=== PATIENT | female | born 1955 | race Caucasian/White ===

== ENCOUNTER 2016-10-26 08:36 | Outpatient (CLI) ==
[2013-04-14 18:39] VITALS: TEMP 98.9
[2015-11-16 09:22] VITALS: BMI 32.9
[2016-10-26 08:56] LABS: BASOPHILS % (AUTO) 0.7 % (0.0-3.0); EOSINOPHILS # (AUTO) 0.1 K/ul (0.0-0.7); EOSINOPHILS % (AUTO) 3.5 % (0.0-7.0); HEMATOCRIT 34.6 % (37.0-47.0); HEMOGLOBIN 10.8 g/dl (12.0-16.0); IMMATURE GRANULOCYTE % (AUTO) 0.3 % (0.0-5.0); LYMPHOCYTES # (AUTO) 0.6 K/uL (0.60-3.4); LYMPHOCYTES % (AUTO) 21.5 (10.0-50.0); MEAN CORPUSCULAR HGB CONC 31.2 (31.8-35.4); MEAN CORPUSCULAR VOLUME 96.1 fl (81.0-99.0); MONOCYTES # (AUTO) 0.4 K/uL (0.4-2.0); MONOCYTES % (AUTO) 12.5 (0-10); NEUTROPHILS # (AUTO) 1.8 K/ul (2.0-6.9); NEUTROPHILS % (AUTO) 61.5; PLATELET COUNT 166 10^3/uL (140-440); WHITE BLOOD COUNT 2.88 K/ul (4.6-10.2)
== END 2016-10-26 08:37 | disposition home or self-care (01) ==
LOC: OPMED 08:36
PROVIDERS: ATTEND Internal Medicine Hematology & Oncology
DX: N18.3 Chronic kidney disease, stage 3 (moderate) (principal); D63.1 Anemia in chronic kidney disease; D72.819 Decreased white blood cell count, unspecified
CPT/HCPCS: 36415; 85025

== ENCOUNTER 2016-11-02 08:39 | Outpatient (CLI) ==
[2013-04-14 18:39] VITALS: TEMP 98.9
[2015-11-16 09:22] VITALS: BMI 32.9
[2016-11-02 09:00] LABS: BASOPHILS % (AUTO) 0.4 % (0.0-3.0); EOSINOPHILS # (AUTO) 0.1 K/ul (0.0-0.7); EOSINOPHILS % (AUTO) 3.2 % (0.0-7.0); HEMATOCRIT 33.9 % (37.0-47.0); HEMOGLOBIN 10.8 g/dl (12.0-16.0); IMMATURE GRANULOCYTE % (AUTO) 0.4 % (0.0-5.0); LYMPHOCYTES # (AUTO) 0.6 K/uL (0.60-3.4); LYMPHOCYTES % (AUTO) 24.2 (10.0-50.0); MEAN CORPUSCULAR HEMOGLOBIN 30.7 pg (27.0-31.0); MEAN CORPUSCULAR HGB CONC 31.9 (31.8-35.4); MEAN CORPUSCULAR VOLUME 96.3 fl (81.0-99.0); MONOCYTES # (AUTO) 0.2 K/uL (0.4-2.0); MONOCYTES % (AUTO) 7.7 (0-10); NEUTROPHILS # (AUTO) 1.6 K/ul (2.0-6.9); NEUTROPHILS % (AUTO) 64.1; PLATELET COUNT 174 10^3/uL (140-440); RED BLOOD COUNT 3.52 10^6/ul (4.20-5.40); WHITE BLOOD COUNT 2.48 K/ul (4.6-10.2)
== END 2016-11-02 08:40 | disposition home or self-care (01) ==
LOC: OPMED 08:39
PROVIDERS: ATTEND Internal Medicine Hematology & Oncology
DX: N18.3 Chronic kidney disease, stage 3 (moderate) (principal); D63.1 Anemia in chronic kidney disease; D72.819 Decreased white blood cell count, unspecified
CPT/HCPCS: 36415; 85025

== ENCOUNTER 2016-11-09 08:42 | Outpatient (CLI) ==
[2013-04-14 18:39] VITALS: TEMP 98.9
[2015-11-16 09:22] VITALS: BMI 32.9
[2016-11-09 09:20] LABS: EOSINOPHILS # (AUTO) 0.2 K/ul (0.0-0.7); EOSINOPHILS % (AUTO) 8.2 % (0.0-7.0); HEMATOCRIT 34.1 % (37.0-47.0); HEMOGLOBIN 10.9 g/dl (12.0-16.0); IMMATURE GRANULOCYTE % (AUTO) 0.5 % (0.0-5.0); LYMPHOCYTES # (AUTO) 0.6 K/uL (0.60-3.4); MEAN CORPUSCULAR HEMOGLOBIN 30.6 pg (27.0-31.0); MEAN CORPUSCULAR VOLUME 95.8 fl (81.0-99.0); MONOCYTES # (AUTO) 0.3 K/uL (0.4-2.0); NEUTROPHILS % (AUTO) 47.3; PLATELET COUNT 179 10^3/uL (140-440); RED BLOOD COUNT 3.56 10^6/ul (4.20-5.40); WHITE BLOOD COUNT 2.07 K/ul (4.6-10.2)
== END 2016-11-09 08:43 | disposition home or self-care (01) ==
LOC: OPMED 08:42
PROVIDERS: ATTEND Internal Medicine Hematology & Oncology
DX: D72.819 Decreased white blood cell count, unspecified (principal)
CPT/HCPCS: 36415; 85025

== ENCOUNTER 2016-11-16 08:46 | Outpatient (CLI) ==
[2015-11-16 09:22] VITALS: BMI 32.9
[2016-11-16 09:07] LABS: BASOPHILS % (AUTO) 0.2 % (0.0-3.0); EOSINOPHILS % (AUTO) 0.2 % (0.0-7.0); HEMATOCRIT 31.7 % (37.0-47.0); HEMOGLOBIN 10.6 g/dl (12.0-16.0); IMMATURE GRANULOCYTE % (AUTO) 0.5 % (0.0-5.0); LYMPHOCYTES # (AUTO) 0.7 K/uL (0.60-3.4); LYMPHOCYTES % (AUTO) 11.2 (10.0-50.0); MEAN CORPUSCULAR HEMOGLOBIN 31.5 pg (27.0-31.0); MEAN CORPUSCULAR HGB CONC 33.4 (31.8-35.4); MEAN CORPUSCULAR VOLUME 94.1 fl (81.0-99.0); MONOCYTES # (AUTO) 0.6 K/uL (0.4-2.0); MONOCYTES % (AUTO) 9.5 (0-10); NEUTROPHILS # (AUTO) 4.8 K/ul (2.0-6.9); NEUTROPHILS % (AUTO) 78.4; PLATELET COUNT 160 10^3/uL (140-440); RED BLOOD COUNT 3.37 10^6/ul (4.20-5.40); WHITE BLOOD COUNT 6.08 K/ul (4.6-10.2)
[2016-11-16] MEDS ORDERED: PROCRIT SUBCUT STA (09:17)
[2016-11-16 09:25] VITALS: BP 126/79; TEMP 96.9
== END 2016-11-16 08:47 | disposition home or self-care (01) ==
LOC: OPMED 08:46 → OUTPT 08:47
PROVIDERS: ATTEND Internal Medicine Hematology & Oncology
DX: D72.819 Decreased white blood cell count, unspecified (principal)
CPT/HCPCS: 36415; 85025; 96372

== ENCOUNTER 2016-11-22 08:33 | Outpatient (CLI) ==
[2013-04-14 18:39] VITALS: TEMP 98.9
[2015-11-16 09:22] VITALS: BMI 32.9
[2016-11-22 08:53] LABS: BASOPHILS % (AUTO) 0.4 % (0.0-3.0); HEMATOCRIT 34.2 % (37.0-47.0); HEMOGLOBIN 11.1 g/dl (12.0-16.0); IMMATURE GRANULOCYTE % (AUTO) 5.2 % (0.0-5.0); LYMPHOCYTES # (AUTO) 1.1 K/uL (0.60-3.4); LYMPHOCYTES % (AUTO) 19.5 (10.0-50.0); MEAN CORPUSCULAR HGB CONC 32.5 (31.8-35.4); MEAN CORPUSCULAR VOLUME 95.5 fl (81.0-99.0); MONOCYTES # (AUTO) 0.4 K/uL (0.4-2.0); NEUTROPHILS # (AUTO) 3.6 K/ul (2.0-6.9); NEUTROPHILS % (AUTO) 66.9; PLATELET COUNT 276 10^3/uL (140-440); RED BLOOD COUNT 3.58 10^6/ul (4.20-5.40); WHITE BLOOD COUNT 5.38 K/ul (4.6-10.2)
== END 2016-11-22 08:34 | disposition home or self-care (01) ==
LOC: LAB 08:33
PROVIDERS: ATTEND Internal Medicine Hematology & Oncology
DX: D72.819 Decreased white blood cell count, unspecified (principal)
CPT/HCPCS: 36415; 85025

== ENCOUNTER 2016-11-27 09:02 | Day surgery (SDC) ==
[2015-11-16 09:22] VITALS: BMI 32.9
[2016-11-27] MEDS ORDERED: ALBUTEROL 0.083% NEB NEB STA (11:01)
[2016-11-27] MEDS ORDERED: VERSED ONE (11:30)
[2016-11-27] MEDS ORDERED: DIPRIVAN 20 ML VIAL IVP ONE (11:30)
[2016-11-27 12:40] VITALS: BP 181/85; TEMP 98.2
--- NOTE | 2016-11-28 10:02 | OP ---
INDICATIONS FOR PROCEDURE: 61-year-old female presents for endoscopy and colonoscopy. She has a remote history of colon polyps for which she is scheduled for colonoscopy. She was scheduled for endoscopy exam because she was having some nausea and vomiting intermittently over the last 4 or 5 months. She states that since she has started a new cough medicine that has completely resolved. She is eating well and not losing weight at this point. She feels okay she tells me. MEDICATIONS: SEE ANESTHESIA NOTES. PROCEDURE: 1. ENDOSCOPY, ARAVIND BIOPSY. 2. COLONOSCOPY. REPORT: The risks, benefits, alternatives and limitations were discussed in detail with the patient. Informed consent was obtained. After adequate sedation was achieved, the video endoscope was introduced in the posterior pharynx and esophagus under direct vision and easily advanced down to the second portion of the duodenum. I then slowly withdrew. The duodenal mucosa appeared unremarkable as did the duodenal bulb. The antrum and body were relatively unremarkable except for it did appear to be mildly atrophic. The cardia and fundus also appeared to have a little bit of mild atrophy. I obtained two biopsies from the antral wall and from the body for H. pylori testing. The scope was withdrawn back through the esophagus which was normal. The patient tolerated the procedure well with stable vital signs and pulse oximetry throughout. The patient's bed was turned. A digital rectal exam revealed good tone, no mass. The colonoscope was introduced into the rectum and advanced under direct visual guidance to the cecum. The cecum was identified by the appendiceal orifice and IC valve. I then slowly withdrew the scope in a circumferential manner examining the mucosa quite carefully. I looked on the proximal and distal side of folds and flexures as best as possible. I was able to retroflex the scope in the right colon and left colon to increase visualization. The colonic mucosa was unremarkable its entire length except for scattered small diverticula throughout the sigmoid colon. No other abnormalities noted including on retroflex view of the anal canal. The prep was good. The withdrawal time was 7 minutes and 59 seconds. The patient tolerated the procedure well with stable vital signs and pulse oximetry throughout. IMPRESSION: 1. The patient tells me she is now asymptomatic. 2. Mildly atrophic appearing gastritis. 3. Colonic diverticulosis. RECOMMENDATIONS: 1. Await H. Pylori; if positive, we will initiate treatment. 2. Since she is asymptomatic, will see her back in the office as needed. 3. Colon screeniing examination again in 10 years. CC: DR. MORENITA TORRES
== END 2016-11-27 12:50 | disposition home or self-care (01) ==
LOC: SURG 09:02
PROVIDERS: ATTEND Internal Medicine Gastroenterology
DX: Z86.010 Personal history of colon polyps (principal); R11.2 Nausea with vomiting, unspecified; K57.30 Diverticulosis of large intestine without perforation or abscess without bleeding; K29.40 Chronic atrophic gastritis without bleeding
CPT/HCPCS: 87339; 94640

== ENCOUNTER 2016-12-06 10:01 | Outpatient (CLI) ==
[2013-04-14 18:39] VITALS: TEMP 98.9
[2015-11-16 09:22] VITALS: BMI 32.9
[2016-12-06 10:16] LABS: BASOPHILS % (AUTO) 0.6 % (0.0-3.0); EOSINOPHILS # (AUTO) 0.1 K/ul (0.0-0.7); EOSINOPHILS % (AUTO) 2.8 % (0.0-7.0); HEMATOCRIT 35.3 % (37.0-47.0); HEMOGLOBIN 11.4 g/dl (12.0-16.0); IMMATURE GRANULOCYTE % (AUTO) 0.3 % (0.0-5.0); LYMPHOCYTES # (AUTO) 0.8 K/uL (0.60-3.4); LYMPHOCYTES % (AUTO) 24.5 (10.0-50.0); MEAN CORPUSCULAR HEMOGLOBIN 30.8 pg (27.0-31.0); MEAN CORPUSCULAR HGB CONC 32.3 (31.8-35.4); MEAN CORPUSCULAR VOLUME 95.4 fl (81.0-99.0); MONOCYTES # (AUTO) 0.3 K/uL (0.4-2.0); MONOCYTES % (AUTO) 9.2 (0-10); NEUTROPHILS # (AUTO) 2.1 K/ul (2.0-6.9); NEUTROPHILS % (AUTO) 62.6; PLATELET COUNT 157 10^3/uL (140-440); WHITE BLOOD COUNT 3.27 K/ul (4.6-10.2)
== END 2016-12-06 10:02 | disposition home or self-care (01) ==
LOC: OPMED 10:01
PROVIDERS: ATTEND Internal Medicine Hematology & Oncology
DX: D72.819 Decreased white blood cell count, unspecified (principal)
CPT/HCPCS: 36415; 85025

== ENCOUNTER 2016-12-14 08:30 | Outpatient (CLI) ==
[2015-11-16 09:22] VITALS: BMI 32.9
[2016-12-14 08:45] LABS: HEMATOCRIT 31.9 % (37.0-47.0); HEMOGLOBIN 10.7 g/dl (12.0-16.0); IMMATURE GRANULOCYTE % (AUTO) 0.4 % (0.0-5.0); LYMPHOCYTES # (AUTO) 0.6 K/uL (0.60-3.4); LYMPHOCYTES % (AUTO) 23.4 (10.0-50.0); MEAN CORPUSCULAR HEMOGLOBIN 31.3 pg (27.0-31.0); MEAN CORPUSCULAR HGB CONC 33.5 (31.8-35.4); MEAN CORPUSCULAR VOLUME 93.3 fl (81.0-99.0); MONOCYTES # (AUTO) 0.2 K/uL (0.4-2.0); NEUTROPHILS # (AUTO) 1.9 K/ul (2.0-6.9); NEUTROPHILS % (AUTO) 69.2; PLATELET COUNT 193 10^3/uL (140-440); RED BLOOD COUNT 3.42 10^6/ul (4.20-5.40); WHITE BLOOD COUNT 2.73 K/ul (4.6-10.2)
--- NOTE | 2016-12-14 09:24 | MAMMO ---
EXAM: Digital screening mammogram HISTORY: Screening COMPARISON: 09/20/2014 FINDINGS: Digital MLO and CC views of the right and left breast were performed. There are scatter ed fibroglandular densities. Stable benign bilateral scattered and vascular calcificationsThere is n o evidence for mass, asymmetry, distortion, or suspicious calcifications in either breast. IMPRESSION: 1. No evidence of malignancy in the right or left breast. 2. Annual screening mammogram is recommended in one year. BIRADS category 2, benign
[2016-12-14] MEDS ORDERED: PROCRIT SUBCUT STA (09:42)
[2016-12-14 10:06] VITALS: BP 168/80; TEMP 97.5
== END 2016-12-14 08:31 | disposition home or self-care (01) ==
LOC: RAD 08:30 → OPMED 08:31
PROVIDERS: ATTEND Emergency Medicine
DX: Z12.31 Encounter for screening mammogram for malignant neoplasm of breast (principal); D72.819 Decreased white blood cell count, unspecified
CPT/HCPCS: 36415; 85025; 96372

== ENCOUNTER 2016-12-21 08:39 | Outpatient (CLI) ==
[2013-04-14 18:39] VITALS: TEMP 98.9
[2015-11-16 09:22] VITALS: BMI 32.9
[2016-12-21 09:18] LABS: BASOPHILS % (AUTO) 0.2 % (0.0-3.0); HEMOGLOBIN 10.8 g/dl (12.0-16.0); IMMATURE GRANULOCYTE % (AUTO) 0.9 % (0.0-5.0); LYMPHOCYTES % (AUTO) 22.4 (10.0-50.0); MEAN CORPUSCULAR HEMOGLOBIN 30.9 pg (27.0-31.0); MEAN CORPUSCULAR HGB CONC 32.7 (31.8-35.4); MEAN CORPUSCULAR VOLUME 94.6 fl (81.0-99.0); MONOCYTES # (AUTO) 0.4 K/uL (0.4-2.0); MONOCYTES % (AUTO) 9.6 (0-10); NEUTROPHILS # (AUTO) 3.1 K/ul (2.0-6.9); NEUTROPHILS % (AUTO) 66.9; PLATELET COUNT 182 10^3/uL (140-440); RED BLOOD COUNT 3.49 10^6/ul (4.20-5.40)
== END 2016-12-21 08:40 | disposition home or self-care (01) ==
LOC: LAB 08:39
PROVIDERS: ATTEND Internal Medicine Hematology & Oncology
DX: D72.819 Decreased white blood cell count, unspecified (principal)
CPT/HCPCS: 36415; 85025

== ENCOUNTER 2016-12-27 09:01 | Outpatient (CLI) ==
[2013-04-14 18:39] VITALS: TEMP 98.9
[2015-11-16 09:22] VITALS: BMI 32.9
[2016-12-27 09:29] LABS: BASOPHILS % (AUTO) 0.3 % (0.0-3.0); EOSINOPHILS # (AUTO) 0.1 K/ul (0.0-0.7); EOSINOPHILS % (AUTO) 2.7 % (0.0-7.0); HEMATOCRIT 33.6 % (37.0-47.0); IMMATURE GRANULOCYTE % (AUTO) 0.5 % (0.0-5.0); LYMPHOCYTES # (AUTO) 0.6 K/uL (0.60-3.4); LYMPHOCYTES % (AUTO) 17.2 (10.0-50.0); MEAN CORPUSCULAR HEMOGLOBIN 30.6 pg (27.0-31.0); MEAN CORPUSCULAR HGB CONC 32.7 (31.8-35.4); MEAN CORPUSCULAR VOLUME 93.6 fl (81.0-99.0); MONOCYTES # (AUTO) 0.4 K/uL (0.4-2.0); MONOCYTES % (AUTO) 11.2 (0-10); NEUTROPHILS # (AUTO) 2.5 K/ul (2.0-6.9); NEUTROPHILS % (AUTO) 68.1; PLATELET COUNT 208 10^3/uL (140-440); RED BLOOD COUNT 3.59 10^6/ul (4.20-5.40); WHITE BLOOD COUNT 3.67 K/ul (4.6-10.2)
== END 2016-12-27 09:02 | disposition home or self-care (01) ==
LOC: OPMED 09:01
PROVIDERS: ATTEND Internal Medicine Hematology & Oncology
DX: D72.819 Decreased white blood cell count, unspecified (principal)
CPT/HCPCS: 36415; 85025

== ENCOUNTER 2017-01-02 08:43 | Outpatient (CLI) ==
[2013-04-14 18:39] VITALS: TEMP 98.9
[2015-11-16 09:22] VITALS: BMI 32.9
[2017-01-02 08:53] LABS: BASOPHILS % (AUTO) 0.8 % (0.0-3.0); EOSINOPHILS # (AUTO) 0.1 K/ul (0.0-0.7); EOSINOPHILS % (AUTO) 3.6 % (0.0-7.0); HEMOGLOBIN 11.2 g/dl (12.0-16.0); IMMATURE GRANULOCYTE % (AUTO) 0.4 % (0.0-5.0); LYMPHOCYTES # (AUTO) 0.7 K/uL (0.60-3.4); LYMPHOCYTES % (AUTO) 26.3 (10.0-50.0); MEAN CORPUSCULAR HGB CONC 32.9 (31.8-35.4); MEAN CORPUSCULAR VOLUME 94.2 fl (81.0-99.0); MONOCYTES # (AUTO) 0.3 K/uL (0.4-2.0); MONOCYTES % (AUTO) 10.9 (0-10); NEUTROPHILS # (AUTO) 1.4 K/ul (2.0-6.9); PLATELET COUNT 207 10^3/uL (140-440); RED BLOOD COUNT 3.61 10^6/ul (4.20-5.40); WHITE BLOOD COUNT 2.47 K/ul (4.6-10.2)
== END 2017-01-02 08:44 | disposition home or self-care (01) ==
LOC: OPMED 08:43
PROVIDERS: ATTEND Internal Medicine Hematology & Oncology
DX: D72.819 Decreased white blood cell count, unspecified (principal)
CPT/HCPCS: 36415; 85025

== ENCOUNTER 2017-01-10 08:40 | Outpatient (CLI) ==
[2013-04-14 18:39] VITALS: TEMP 98.9
[2015-11-16 09:22] VITALS: BMI 32.9
[2017-01-10 09:03] LABS: BASOPHILS % (AUTO) 0.8 % (0.0-3.0); EOSINOPHILS # (AUTO) 0.1 K/ul (0.0-0.7); EOSINOPHILS % (AUTO) 3.5 % (0.0-7.0); HEMATOCRIT 35.4 % (37.0-47.0); HEMOGLOBIN 11.6 g/dl (12.0-16.0); IMMATURE GRANULOCYTE % (AUTO) 0.4 % (0.0-5.0); LYMPHOCYTES # (AUTO) 0.6 K/uL (0.60-3.4); LYMPHOCYTES % (AUTO) 24.2 (10.0-50.0); MEAN CORPUSCULAR HEMOGLOBIN 30.8 pg (27.0-31.0); MEAN CORPUSCULAR HGB CONC 32.8 (31.8-35.4); MEAN CORPUSCULAR VOLUME 93.9 fl (81.0-99.0); MONOCYTES # (AUTO) 0.3 K/uL (0.4-2.0); MONOCYTES % (AUTO) 10.2 (0-10); NEUTROPHILS # (AUTO) 1.6 K/ul (2.0-6.9); NEUTROPHILS % (AUTO) 60.9; PLATELET COUNT 183 10^3/uL (140-440); RED BLOOD COUNT 3.77 10^6/ul (4.20-5.40); WHITE BLOOD COUNT 2.56 K/ul (4.6-10.2)
--- NOTE | 2017-01-10 09:48 | DI ---
EXAM: Sacroiliac joints three views HISTORY: Sacroiliitis. FINDINGS: Compared to 08/17/2015 pelvic radiography. The joints are intact with no bony fusion. Th ere is early osteoarthritis of the lower synovial portions of both sacroiliac joints. Minimal peria rticular sclerosis is noted symmetrically and bilaterally. These findings appear unchanged since pr ior study. General bone density is mildly decreased. Severe facet arthropathy at the lumbosacral j unction is suggested. IMPRESSION: Stable mild arthropathy of the sacroiliac joints. Severe facet arthropathy lower spine.
--- NOTE | 2017-01-10 09:50 | DI ---
EXAM: Three views of the lumbar spine HISTORY: Back pain. COMPARISON: Lumbar spine x-ray 08/17/2015 FINDINGS: Lumbar spine demonstrates no acute compression fracture. There is unchanged minimal wedgi ng of the L1 vertebral body. There are scattered anterior disc osteophytes throughout the L-spine. There is narrowing of the lumbosacral junction and L2-L3. There is scattered facet arthropathy, mo st pronounced in the lower lumbar spine. There is no lytic or blastic lesion. There is no subluxat ion. There is scattered unchanged atherosclerotic disease of the aorta. IMPRESSION: 1. No acute compression fracture or significant interval change of the lumbosacral spine. 2. Multilevel degenerative disease with anterior disc osteophytes, facet arthropathy and levels of disc space narrowing as described above.
== END 2017-01-10 08:41 | disposition home or self-care (01) ==
LOC: OPMED 08:40
PROVIDERS: ATTEND Internal Medicine Hematology & Oncology
DX: M47.816 Spondylosis without myelopathy or radiculopathy, lumbar region (principal); M47.817 Spondylosis without myelopathy or radiculopathy, lumbosacral region; M46.1 Sacroiliitis, not elsewhere classified; D72.819 Decreased white blood cell count, unspecified
CPT/HCPCS: 36415; 85025

== ENCOUNTER 2017-01-17 08:36 | Outpatient (CLI) ==
[2013-04-14 18:39] VITALS: TEMP 98.9
[2015-11-16 09:22] VITALS: BMI 32.9
[2017-01-17 09:18] LABS: BASOPHILS % (AUTO) 0.7 % (0.0-3.0); EOSINOPHILS # (AUTO) 0.1 K/ul (0.0-0.7); EOSINOPHILS % (AUTO) 4.4 % (0.0-7.0); HEMATOCRIT 34.6 % (37.0-47.0); HEMOGLOBIN 11.5 g/dl (12.0-16.0); IMMATURE GRANULOCYTE % (AUTO) 0.4 % (0.0-5.0); LYMPHOCYTES # (AUTO) 0.7 K/uL (0.60-3.4); LYMPHOCYTES % (AUTO) 25.8 (10.0-50.0); MEAN CORPUSCULAR HEMOGLOBIN 30.8 pg (27.0-31.0); MEAN CORPUSCULAR HGB CONC 33.2 (31.8-35.4); MEAN CORPUSCULAR VOLUME 92.8 fl (81.0-99.0); MONOCYTES # (AUTO) 0.3 K/uL (0.4-2.0); MONOCYTES % (AUTO) 10.7 (0-10); NEUTROPHILS # (AUTO) 1.6 K/ul (2.0-6.9); PLATELET COUNT 191 10^3/uL (140-440); RED BLOOD COUNT 3.73 10^6/ul (4.20-5.40); WHITE BLOOD COUNT 2.71 K/ul (4.6-10.2)
== END 2017-01-17 08:37 | disposition home or self-care (01) ==
LOC: OPMED 08:36
PROVIDERS: ATTEND Internal Medicine Hematology & Oncology
DX: D72.819 Decreased white blood cell count, unspecified (principal)
CPT/HCPCS: 36415; 85025

== ENCOUNTER 2017-01-31 08:45 | Outpatient (CLI) ==
[2013-04-14 18:39] VITALS: TEMP 98.9
[2015-11-16 09:22] VITALS: BMI 32.9
[2017-01-31 09:16] LABS: BASOPHILS % (AUTO) 0.4 % (0.0-3.0); EOSINOPHILS # (AUTO) 0.2 K/ul (0.0-0.7); EOSINOPHILS % (AUTO) 6.2 % (0.0-7.0); HEMATOCRIT 32.4 % (37.0-47.0); HEMOGLOBIN 10.9 g/dl (12.0-16.0); LYMPHOCYTES # (AUTO) 0.7 K/uL (0.60-3.4); LYMPHOCYTES % (AUTO) 26.4 (10.0-50.0); MEAN CORPUSCULAR HEMOGLOBIN 30.7 pg (27.0-31.0); MEAN CORPUSCULAR HGB CONC 33.6 (31.8-35.4); MEAN CORPUSCULAR VOLUME 91.3 fl (81.0-99.0); MONOCYTES # (AUTO) 0.2 K/uL (0.4-2.0); MONOCYTES % (AUTO) 8.9 (0-10); NEUTROPHILS # (AUTO) 1.5 K/ul (2.0-6.9); NEUTROPHILS % (AUTO) 58.1; RED BLOOD COUNT 3.55 10^6/ul (4.20-5.40); WHITE BLOOD COUNT 2.58 K/ul (4.6-10.2)
[2017-01-31 09:18] LABS: PLATELET COUNT 169 10^3/uL (140-440)
[2017-01-31] MEDS ORDERED: PROCRIT SUBCUT STA (09:55)
== END 2017-01-31 08:46 | disposition home or self-care (01) ==
LOC: OPMED 08:45
PROVIDERS: ATTEND Internal Medicine Hematology & Oncology
DX: D72.819 Decreased white blood cell count, unspecified (principal)
CPT/HCPCS: 36415; 85025; 96375

== ENCOUNTER 2017-02-08 08:46 | Outpatient (CLI) ==
[2013-04-14 18:39] VITALS: TEMP 98.9
[2015-11-16 09:22] VITALS: BMI 32.9
[2017-02-08 09:07] LABS: EOSINOPHILS # (AUTO) 0.2 K/ul (0.0-0.7); EOSINOPHILS % (AUTO) 6.7 % (0.0-7.0); HEMATOCRIT 34.4 % (37.0-47.0); HEMOGLOBIN 11.4 g/dl (12.0-16.0); IMMATURE GRANULOCYTE % (AUTO) 0.4 % (0.0-5.0); LYMPHOCYTES # (AUTO) 0.7 K/uL (0.60-3.4); LYMPHOCYTES % (AUTO) 24.8 (10.0-50.0); MEAN CORPUSCULAR HGB CONC 33.1 (31.8-35.4); MEAN CORPUSCULAR VOLUME 93.5 fl (81.0-99.0); MONOCYTES # (AUTO) 0.3 K/uL (0.4-2.0); MONOCYTES % (AUTO) 9.6 (0-10); NEUTROPHILS # (AUTO) 1.6 K/ul (2.0-6.9); NEUTROPHILS % (AUTO) 58.5; PLATELET COUNT 174 10^3/uL (140-440); RED BLOOD COUNT 3.68 10^6/ul (4.20-5.40)
== END 2017-02-08 08:47 | disposition home or self-care (01) ==
LOC: OPMED 08:46
PROVIDERS: ATTEND Internal Medicine Hematology & Oncology
DX: D72.819 Decreased white blood cell count, unspecified (principal)
CPT/HCPCS: 36415; 85025

== ENCOUNTER 2017-02-21 08:47 | Outpatient (CLI) ==
[2013-04-14 18:39] VITALS: TEMP 98.9
[2015-11-16 09:22] VITALS: BMI 32.9
[2017-02-21 09:03] LABS: BASOPHILS % (AUTO) 0.4 % (0.0-3.0); EOSINOPHILS # (AUTO) 0.1 K/ul (0.0-0.7); EOSINOPHILS % (AUTO) 4.3 % (0.0-7.0); HEMATOCRIT 36.5 % (37.0-47.0); HEMOGLOBIN 12.1 g/dl (12.0-16.0); IMMATURE GRANULOCYTE % (AUTO) 0.4 % (0.0-5.0); LYMPHOCYTES # (AUTO) 0.9 K/uL (0.60-3.4); LYMPHOCYTES % (AUTO) 33.7 (10.0-50.0); MEAN CORPUSCULAR HGB CONC 33.2 (31.8-35.4); MEAN CORPUSCULAR VOLUME 93.6 fl (81.0-99.0); MONOCYTES # (AUTO) 0.3 K/uL (0.4-2.0); MONOCYTES % (AUTO) 10.2 (0-10); NEUTROPHILS # (AUTO) 1.3 K/ul (2.0-6.9); PLATELET COUNT 176 10^3/uL (140-440); WHITE BLOOD COUNT 2.55 K/ul (4.6-10.2)
== END 2017-02-21 08:48 | disposition home or self-care (01) ==
LOC: OPMED 08:47
PROVIDERS: ATTEND Internal Medicine Hematology & Oncology
DX: D72.819 Decreased white blood cell count, unspecified (principal)
CPT/HCPCS: 36415; 85025

== ENCOUNTER 2017-02-26 08:52 | Outpatient (CLI) ==
[2013-04-14 18:39] VITALS: TEMP 98.9
[2015-11-16 09:22] VITALS: BMI 32.9
[2017-02-26 09:14] LABS: BASOPHILS % (AUTO) 0.4 % (0.0-3.0); EOSINOPHILS # (AUTO) 0.1 K/ul (0.0-0.7); EOSINOPHILS % (AUTO) 3.2 % (0.0-7.0); HEMATOCRIT 33.5 % (37.0-47.0); HEMOGLOBIN 11.1 g/dl (12.0-16.0); IMMATURE GRANULOCYTE % (AUTO) 0.4 % (0.0-5.0); LYMPHOCYTES # (AUTO) 0.8 K/uL (0.60-3.4); LYMPHOCYTES % (AUTO) 28.1 (10.0-50.0); MEAN CORPUSCULAR HEMOGLOBIN 30.6 pg (27.0-31.0); MEAN CORPUSCULAR HGB CONC 33.1 (31.8-35.4); MEAN CORPUSCULAR VOLUME 92.3 fl (81.0-99.0); MONOCYTES # (AUTO) 0.3 K/uL (0.4-2.0); NEUTROPHILS # (AUTO) 1.6 K/ul (2.0-6.9); NEUTROPHILS % (AUTO) 58.9; PLATELET COUNT 179 10^3/uL (140-440); RED BLOOD COUNT 3.63 10^6/ul (4.20-5.40); WHITE BLOOD COUNT 2.78 K/ul (4.6-10.2)
== END 2017-02-26 08:53 | disposition home or self-care (01) ==
LOC: LAB 08:52
PROVIDERS: ATTEND Internal Medicine Hematology & Oncology
DX: D72.819 Decreased white blood cell count, unspecified (principal)
CPT/HCPCS: 36415; 85025

== ENCOUNTER 2017-03-05 08:34 | Outpatient (CLI) ==
[2013-04-14 18:39] VITALS: TEMP 98.9
[2015-11-16 09:22] VITALS: BMI 32.9
[2017-03-05 09:06] LABS: BASOPHILS % (AUTO) 1.2 % (0.0-3.0); EOSINOPHILS # (AUTO) 0.1 K/ul (0.0-0.7); EOSINOPHILS % (AUTO) 3.5 % (0.0-7.0); HEMATOCRIT 32.3 % (37.0-47.0); IMMATURE GRANULOCYTE % (AUTO) 0.4 % (0.0-5.0); LYMPHOCYTES # (AUTO) 0.7 K/uL (0.60-3.4); LYMPHOCYTES % (AUTO) 27.3 (10.0-50.0); MEAN CORPUSCULAR HGB CONC 34.1 (31.8-35.4); MONOCYTES # (AUTO) 0.2 K/uL (0.4-2.0); MONOCYTES % (AUTO) 8.8 (0-10); NEUTROPHILS # (AUTO) 1.5 K/ul (2.0-6.9); NEUTROPHILS % (AUTO) 58.8; PLATELET COUNT 172 10^3/uL (140-440); RED BLOOD COUNT 3.55 10^6/ul (4.20-5.40)
== END 2017-03-05 08:35 | disposition home or self-care (01) ==
LOC: OPMED 08:34
PROVIDERS: ATTEND Internal Medicine Hematology & Oncology
DX: D72.819 Decreased white blood cell count, unspecified (principal)
CPT/HCPCS: 36415; 85025

== ENCOUNTER 2017-03-14 09:14 | Outpatient (CLI) ==
[2013-04-14 18:39] VITALS: TEMP 98.9
[2015-11-16 09:22] VITALS: BMI 32.9
[2017-03-14 09:40] LABS: BASOPHILS % (AUTO) 0.3 % (0.0-3.0); EOSINOPHILS # (AUTO) 0.1 K/ul (0.0-0.7); EOSINOPHILS % (AUTO) 3.9 % (0.0-7.0); HEMATOCRIT 34.1 % (37.0-47.0); HEMOGLOBIN 11.4 g/dl (12.0-16.0); IMMATURE GRANULOCYTE % (AUTO) 0.7 % (0.0-5.0); LYMPHOCYTES # (AUTO) 0.6 K/uL (0.60-3.4); LYMPHOCYTES % (AUTO) 20.2 (10.0-50.0); MEAN CORPUSCULAR HEMOGLOBIN 30.5 pg (27.0-31.0); MEAN CORPUSCULAR HGB CONC 33.4 (31.8-35.4); MEAN CORPUSCULAR VOLUME 91.2 fl (81.0-99.0); MONOCYTES # (AUTO) 0.3 K/uL (0.4-2.0); MONOCYTES % (AUTO) 9.8 (0-10); NEUTROPHILS % (AUTO) 65.1; RED BLOOD COUNT 3.74 10^6/ul (4.20-5.40); WHITE BLOOD COUNT 3.07 K/ul (4.6-10.2)
[2017-03-14 09:41] LABS: PLATELET COUNT 164 10^3/uL (140-440)
== END 2017-03-14 09:15 | disposition home or self-care (01) ==
LOC: OPMED 09:14 → LAB 09:15
PROVIDERS: ATTEND Internal Medicine Hematology & Oncology
DX: D72.819 Decreased white blood cell count, unspecified (principal)
CPT/HCPCS: 36415; 85025

== ENCOUNTER 2017-03-22 08:32 | Outpatient (CLI) ==
[2013-04-14 18:39] VITALS: TEMP 98.9
[2015-11-16 09:22] VITALS: BMI 32.9
[2017-03-22 08:53] LABS: BASOPHILS % (AUTO) 0.6 % (0.0-3.0); EOSINOPHILS # (AUTO) 0.1 K/ul (0.0-0.7); EOSINOPHILS % (AUTO) 3.4 % (0.0-7.0); HEMATOCRIT 33.7 % (37.0-47.0); HEMOGLOBIN 11.4 g/dl (12.0-16.0); IMMATURE GRANULOCYTE % (AUTO) 0.6 % (0.0-5.0); LYMPHOCYTES # (AUTO) 0.7 K/uL (0.60-3.4); MEAN CORPUSCULAR HEMOGLOBIN 30.5 pg (27.0-31.0); MEAN CORPUSCULAR HGB CONC 33.8 (31.8-35.4); MEAN CORPUSCULAR VOLUME 90.1 fl (81.0-99.0); MONOCYTES # (AUTO) 0.3 K/uL (0.4-2.0); MONOCYTES % (AUTO) 9.1 (0-10); NEUTROPHILS # (AUTO) 2.3 K/ul (2.0-6.9); NEUTROPHILS % (AUTO) 66.3; RED BLOOD COUNT 3.74 10^6/ul (4.20-5.40)
[2017-03-22 08:54] LABS: PLATELET COUNT 184 10^3/uL (140-440)
== END 2017-03-22 08:33 | disposition home or self-care (01) ==
LOC: LAB 08:32
PROVIDERS: ATTEND Internal Medicine Hematology & Oncology
DX: D72.819 Decreased white blood cell count, unspecified (principal)
CPT/HCPCS: 36415; 85025

== ENCOUNTER 2017-04-04 08:43 | Outpatient (CLI) ==
[2015-11-16 09:22] VITALS: BMI 32.9
[2017-04-04 08:54] LABS: BASOPHILS % (AUTO) 0.8 % (0.0-3.0); EOSINOPHILS # (AUTO) 0.1 K/ul (0.0-0.7); EOSINOPHILS % (AUTO) 5.4 % (0.0-7.0); HEMATOCRIT 31.9 % (37.0-47.0); HEMOGLOBIN 10.7 g/dl (12.0-16.0); IMMATURE GRANULOCYTE % (AUTO) 0.4 % (0.0-5.0); LYMPHOCYTES # (AUTO) 0.7 K/uL (0.60-3.4); LYMPHOCYTES % (AUTO) 26.2 (10.0-50.0); MEAN CORPUSCULAR HEMOGLOBIN 30.1 pg (27.0-31.0); MEAN CORPUSCULAR HGB CONC 33.5 (31.8-35.4); MEAN CORPUSCULAR VOLUME 89.9 fl (81.0-99.0); MONOCYTES # (AUTO) 0.3 K/uL (0.4-2.0); MONOCYTES % (AUTO) 9.6 (0-10); NEUTROPHILS # (AUTO) 1.5 K/ul (2.0-6.9); NEUTROPHILS % (AUTO) 57.6; RED BLOOD COUNT 3.55 10^6/ul (4.20-5.40)
[2017-04-04 08:56] LABS: PLATELET COUNT 207 10^3/uL (140-440)
[2017-04-04 09:11] VITALS: BP 145/83; TEMP 96.4
[2017-04-04] MEDS ORDERED: PROCRIT SUBCUT STA (09:12)
== END 2017-04-04 08:44 | disposition home or self-care (01) ==
LOC: LAB 08:43 → OPMED 08:44
PROVIDERS: ATTEND Internal Medicine Hematology & Oncology
DX: D72.819 Decreased white blood cell count, unspecified (principal)
CPT/HCPCS: 36415; 85025; 96372

== ENCOUNTER 2017-04-17 09:53 | Outpatient (CLI) ==
[2013-04-14 18:39] VITALS: TEMP 98.9
[2015-11-16 09:22] VITALS: BMI 32.9
[2017-04-17 10:21] LABS: BASOPHILS % (AUTO) 0.8 % (0.0-3.0); EOSINOPHILS # (AUTO) 0.1 K/ul (0.0-0.7); EOSINOPHILS % (AUTO) 5.7 % (0.0-7.0); HEMATOCRIT 36.9 % (37.0-47.0); HEMOGLOBIN 12.1 g/dl (12.0-16.0); IMMATURE GRANULOCYTE % (AUTO) 0.4 % (0.0-5.0); LYMPHOCYTES # (AUTO) 0.6 K/uL (0.60-3.4); LYMPHOCYTES % (AUTO) 25.3 (10.0-50.0); MEAN CORPUSCULAR HEMOGLOBIN 30.3 pg (27.0-31.0); MEAN CORPUSCULAR HGB CONC 32.8 (31.8-35.4); MEAN CORPUSCULAR VOLUME 92.5 fl (81.0-99.0); MONOCYTES # (AUTO) 0.2 K/uL (0.4-2.0); MONOCYTES % (AUTO) 9.4 (0-10); NEUTROPHILS # (AUTO) 1.4 K/ul (2.0-6.9); NEUTROPHILS % (AUTO) 58.4; PLATELET COUNT 166 10^3/uL (140-440); RED BLOOD COUNT 3.99 10^6/ul (4.20-5.40); WHITE BLOOD COUNT 2.45 K/ul (4.6-10.2)
== END 2017-04-17 09:54 | disposition home or self-care (01) ==
LOC: OPMED 09:53 → LAB 09:54
PROVIDERS: ATTEND Internal Medicine Hematology & Oncology
DX: D72.819 Decreased white blood cell count, unspecified (principal)
CPT/HCPCS: 36415; 85025

== ENCOUNTER 2017-05-09 10:37 | Outpatient (CLI) ==
[2013-04-14 18:39] VITALS: TEMP 98.9
[2015-11-16 09:22] VITALS: BMI 32.9
[2017-05-09 10:55] LABS: BASOPHILS % (AUTO) 0.3 % (0.0-3.0); EOSINOPHILS # (AUTO) 0.1 K/ul (0.0-0.7); EOSINOPHILS % (AUTO) 3.8 % (0.0-7.0); HEMOGLOBIN 11.2 g/dl (12.0-16.0); IMMATURE GRANULOCYTE % (AUTO) 0.9 % (0.0-5.0); LYMPHOCYTES # (AUTO) 0.7 K/uL (0.60-3.4); LYMPHOCYTES % (AUTO) 21.2 (10.0-50.0); MEAN CORPUSCULAR HEMOGLOBIN 30.9 pg (27.0-31.0); MEAN CORPUSCULAR HGB CONC 33.9 (31.8-35.4); MEAN CORPUSCULAR VOLUME 90.9 fl (81.0-99.0); MONOCYTES # (AUTO) 0.3 K/uL (0.4-2.0); MONOCYTES % (AUTO) 7.6 (0-10); NEUTROPHILS # (AUTO) 2.3 K/ul (2.0-6.9); NEUTROPHILS % (AUTO) 66.2; PLATELET COUNT 195 10^3/uL (140-440); RED BLOOD COUNT 3.63 10^6/ul (4.20-5.40); WHITE BLOOD COUNT 3.44 K/ul (4.6-10.2)
== END 2017-05-09 10:38 | disposition home or self-care (01) ==
LOC: OPMED 10:37
PROVIDERS: ATTEND Internal Medicine Hematology & Oncology
DX: N18.3 Chronic kidney disease, stage 3 (moderate) (principal); D63.1 Anemia in chronic kidney disease; D72.819 Decreased white blood cell count, unspecified
CPT/HCPCS: 36415; 85025

== ENCOUNTER 2017-05-10 09:44 | Outpatient (CLI) ==
[2013-04-14 18:39] VITALS: TEMP 98.9
[2015-11-16 09:22] VITALS: BMI 32.9
--- NOTE | 2017-05-10 10:27 | CT ---
EXAM: CT right hip without contrast HISTORY: Pain in right hip COMPARISON: CT 04/27/2013. TECHNIQUE: CT right hip performed without intravenous contrast. Coronal and sagittal reformatted i mages obtained. 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 There is mild colonic diverticulosis khai t is incompletely imaged. There is atherosclerosis. Bone mineralization is normal. No fracture or dislocation. There is a small area of lucency with peripheral sclerosis in the anterior femoral he ad region measuring up to 1.1 cm. There is a similar region of lucency with peripheral sclerosis in the intertrochanteric region of the femur measuring up to 1.9 cm. Findings unchanged from 2013. Mi ld narrowing right hip joint. IMPRESSION: 1. No fracture or dislocation. 2. Mild osteoarthritis right hip. 3. Small area of lucency with peripheral sclerosis femoral head. Differential diagnosis includes frederick scular necrosis, though this may represent a degenerative cyst with peripheral sclerosis as there is a similar finding seen in the intertrochanteric region. Findings unchanged from 2013, consistent w ith benign etiology.
== END 2017-05-10 09:45 | disposition home or self-care (01) ==
LOC: RAD 09:44
PROVIDERS: ATTEND Emergency Medicine
DX: M25.551 Pain in right hip (principal)

== ENCOUNTER 2017-05-27 08:21 | Outpatient (CLI) ==
[2015-11-16 09:22] VITALS: BMI 32.9
[2017-05-27 08:48] LABS: BASOPHILS % (AUTO) 0.4 % (0.0-3.0); EOSINOPHILS # (AUTO) 0.1 K/ul (0.0-0.7); EOSINOPHILS % (AUTO) 4.7 % (0.0-7.0); HEMATOCRIT 31.3 % (37.0-47.0); HEMOGLOBIN 10.5 g/dl (12.0-16.0); IMMATURE GRANULOCYTE % (AUTO) 0.4 % (0.0-5.0); LYMPHOCYTES # (AUTO) 0.8 K/uL (0.60-3.4); MEAN CORPUSCULAR HEMOGLOBIN 30.8 pg (27.0-31.0); MEAN CORPUSCULAR HGB CONC 33.5 (31.8-35.4); MEAN CORPUSCULAR VOLUME 91.8 fl (81.0-99.0); MONOCYTES # (AUTO) 0.3 K/uL (0.4-2.0); NEUTROPHILS # (AUTO) 1.6 K/ul (2.0-6.9); NEUTROPHILS % (AUTO) 57.5; PLATELET COUNT 209 10^3/uL (140-440); RED BLOOD COUNT 3.41 10^6/ul (4.20-5.40); WHITE BLOOD COUNT 2.79 K/ul (4.6-10.2)
[2017-05-27] MEDS ORDERED: PROCRIT SUBCUT STA (08:57)
[2017-05-27 09:02] VITALS: BP 134/83; TEMP 98.4
== END 2017-05-27 08:22 | disposition home or self-care (01) ==
LOC: OPMED 08:21
PROVIDERS: ATTEND Internal Medicine Hematology & Oncology
DX: N18.3 Chronic kidney disease, stage 3 (moderate) (principal); D63.1 Anemia in chronic kidney disease; D72.819 Decreased white blood cell count, unspecified
CPT/HCPCS: 36415; 85025; 96372

== ENCOUNTER 2017-06-03 15:56 | Outpatient (CLI) ==
[2013-04-14 18:39] VITALS: TEMP 98.9
[2015-11-16 09:22] VITALS: BMI 32.9
== END 2017-06-03 15:57 | disposition home or self-care (01) ==
LOC: LAB 15:56
PROVIDERS: ATTEND Nurse Practitioner Family
DX: J02.9 Acute pharyngitis, unspecified (principal)
CPT/HCPCS: 87651; 87880

== ENCOUNTER 2017-06-11 10:19 | Outpatient (CLI) ==
[2015-11-16 09:22] VITALS: BMI 32.9
[2017-06-11 10:32] LABS: BASOPHILS % (AUTO) 0.4 % (0.0-3.0); EOSINOPHILS # (AUTO) 0.2 K/ul (0.0-0.7); EOSINOPHILS % (AUTO) 9.3 % (0.0-7.0); HEMATOCRIT 29.8 % (37.0-47.0); HEMOGLOBIN 9.8 g/dl (12.0-16.0); LYMPHOCYTES # (AUTO) 0.7 K/uL (0.60-3.4); LYMPHOCYTES % (AUTO) 26.1 (10.0-50.0); MEAN CORPUSCULAR HEMOGLOBIN 30.2 pg (27.0-31.0); MEAN CORPUSCULAR HGB CONC 32.9 (31.8-35.4); MONOCYTES # (AUTO) 0.3 K/uL (0.4-2.0); MONOCYTES % (AUTO) 11.7 (0-10); NEUTROPHILS # (AUTO) 1.4 K/ul (2.0-6.9); NEUTROPHILS % (AUTO) 52.5; PLATELET COUNT 205 10^3/uL (140-440); RED BLOOD COUNT 3.24 10^6/ul (4.20-5.40); WHITE BLOOD COUNT 2.57 K/ul (4.6-10.2)
[2017-06-11] MEDS ORDERED: PROCRIT SUBCUT STA (10:58)
[2017-06-11 11:02] VITALS: BP 123/76; TEMP 97.5
== END 2017-06-11 10:20 | disposition home or self-care (01) ==
LOC: OPMED 10:19 → LAB 10:20
PROVIDERS: ATTEND Internal Medicine Hematology & Oncology
DX: N18.3 Chronic kidney disease, stage 3 (moderate) (principal); D63.1 Anemia in chronic kidney disease; D72.819 Decreased white blood cell count, unspecified
CPT/HCPCS: 36415; 85025; 96372

== ENCOUNTER 2017-06-12 10:15 | Outpatient (CLI) ==
[2013-04-14 18:39] VITALS: TEMP 98.9
[2015-11-16 09:22] VITALS: BMI 32.9
--- NOTE | 2017-06-12 11:17 | CT ---
EXAM: CT chest without contrast HISTORY: Shortness of breath COMPARISON: Chest x-ray 06/15/[address] chest 07/14/2015 TECHNIQUE: Serial axial images of the chest were obtained from the lung apices to the upper abdomen without contrast. These were viewed in multiple planes. FINDINGS: The thyroid is normal. The visualized vessels demonstrate atherosclerotic disease of the aorta and branching arteries. Pulmonary arteries are upper limit of normal. The heart is normal i n size with trace pericardial fluid. There are no pathologically enlarged mediastinal or hilar lymp h nodes. Calcified mediastinal and hilar lymph nodes are present. There is no pneumothorax or pleural effusion. There is areas of linear ground-glass and airway thic kening in the posterior aspect of the right upper lobe in the left lung apex. There is mild patchy g round-glass in the lower lobes and right middle lobe. There is minimal airway thickening in the kristine gula. Central consolidation in the right middle lobe as improved / resolved since prior CT. The ai rways are patent. The soft tissues in the upper abdomen demonstrate some mild adrenal nodularity which is stable. The re is bilateral mild renal atrophy. There is surgical clips in the gallbladder fossa. Osseous stru ctures demonstrate degenerative disease of the spine. IMPRESSION: 1. Ground-glass and airway thickening with linear consolidation in the right lung apex, suggestive of focal small airway inflammation/infection. 2. Patchy ground-glass throughout the lower lobes and right middle lobe with airway thickening may represent changes of chronic obstructive pulmonary disease versus atypical infection. No acute cons olidation is identified in the lower lobes. 3. Unchanged mild adrenal gland nodularity and bilateral renal atrophy.
== END 2017-06-12 10:16 | disposition home or self-care (01) ==
LOC: RAD 10:15
PROVIDERS: ATTEND Emergency Medicine
DX: R06.02 Shortness of breath (principal)

== ENCOUNTER 2017-06-27 08:41 | Outpatient (CLI) ==
[2015-11-16 09:22] VITALS: BMI 32.9
[2017-06-27 09:06] LABS: BASOPHILS % (AUTO) 0.6 % (0.0-3.0); EOSINOPHILS # (AUTO) 0.1 K/ul (0.0-0.7); EOSINOPHILS % (AUTO) 2.8 % (0.0-7.0); HEMATOCRIT 34.6 % (37.0-47.0); HEMOGLOBIN 11.2 g/dl (12.0-16.0); IMMATURE GRANULOCYTE % (AUTO) 0.8 % (0.0-5.0); LYMPHOCYTES # (AUTO) 0.6 K/uL (0.60-3.4); LYMPHOCYTES % (AUTO) 16.4 (10.0-50.0); MEAN CORPUSCULAR HEMOGLOBIN 30.4 pg (27.0-31.0); MEAN CORPUSCULAR HGB CONC 32.4 (31.8-35.4); MEAN CORPUSCULAR VOLUME 93.8 fl (81.0-99.0); MONOCYTES # (AUTO) 0.3 K/uL (0.4-2.0); MONOCYTES % (AUTO) 7.9 (0-10); NEUTROPHILS # (AUTO) 2.5 K/ul (2.0-6.9); NEUTROPHILS % (AUTO) 71.5; PLATELET COUNT 163 10^3/uL (140-440); RED BLOOD COUNT 3.69 10^6/ul (4.20-5.40); WHITE BLOOD COUNT 3.53 K/ul (4.6-10.2)
[2017-06-27] MEDS ORDERED: PROCRIT SUBCUT STA (09:22)
== END 2017-06-27 08:42 | disposition home or self-care (01) ==
LOC: OPMED 08:41 → LAB 08:42
PROVIDERS: ATTEND Internal Medicine Hematology & Oncology
DX: N18.3 Chronic kidney disease, stage 3 (moderate) (principal); D63.1 Anemia in chronic kidney disease; D72.819 Decreased white blood cell count, unspecified
CPT/HCPCS: 36415; 85025

== ENCOUNTER 2017-07-11 10:55 | Outpatient (CLI) ==
[2013-04-14 18:39] VITALS: TEMP 98.9
[2015-11-16 09:22] VITALS: BMI 32.9
[2017-07-11 11:26] LABS: BASOPHILS % (AUTO) 0.2 % (0.0-3.0); EOSINOPHILS # (AUTO) 0.1 K/ul (0.0-0.7); EOSINOPHILS % (AUTO) 1.8 % (0.0-7.0); HEMATOCRIT 33.5 % (37.0-47.0); IMMATURE GRANULOCYTE % (AUTO) 0.2 % (0.0-5.0); LYMPHOCYTES # (AUTO) 0.9 K/uL (0.60-3.4); LYMPHOCYTES % (AUTO) 18.8 (10.0-50.0); MEAN CORPUSCULAR HEMOGLOBIN 30.4 pg (27.0-31.0); MEAN CORPUSCULAR HGB CONC 32.8 (31.8-35.4); MEAN CORPUSCULAR VOLUME 92.5 fl (81.0-99.0); MONOCYTES # (AUTO) 0.4 K/uL (0.4-2.0); MONOCYTES % (AUTO) 7.8 (0-10); NEUTROPHILS # (AUTO) 3.2 K/ul (2.0-6.9); NEUTROPHILS % (AUTO) 71.2; PLATELET COUNT 171 10^3/uL (140-440); RED BLOOD COUNT 3.62 10^6/ul (4.20-5.40); WHITE BLOOD COUNT 4.51 K/ul (4.6-10.2)
[2017-07-11 12:05] LABS: ALBUMIN 2.5 g/dL (3.4-5.0); ALBUMIN/GLOBULIN RATIO 0.71; ANION GAP 13.2; BILIRUBIN,TOTAL 0.34 mg/dL (0.00-1.20); BUN/CREATININE RATIO 18.51; CALCIUM 8.7 mg/dL (8.2-10.2); CHOL/HDL RATIO 5.2 (4.5-5.5); CREATININE 1.35 mg/dL (0.60-1.30); POTASSIUM 4.2 mmol/L (3.5-5.10)
== END 2017-07-11 10:56 | disposition home or self-care (01) ==
LOC: OPMED 10:55
PROVIDERS: ATTEND Internal Medicine Hematology & Oncology
DX: N18.3 Chronic kidney disease, stage 3 (moderate) (principal); D63.1 Anemia in chronic kidney disease; D72.819 Decreased white blood cell count, unspecified; E78.5 Hyperlipidemia, unspecified; I10 Essential (primary) hypertension; D50.8 Other iron deficiency anemias
CPT/HCPCS: 36415; 80053; 80061; 82607; 84443; 85025

== ENCOUNTER 2017-07-25 08:11 | Outpatient (CLI) ==
[2015-11-16 09:22] VITALS: BMI 32.9
[2017-07-25 08:26] LABS: BASOPHILS % (AUTO) 0.4 % (0.0-3.0); EOSINOPHILS # (AUTO) 0.1 K/ul (0.0-0.7); HEMATOCRIT 31.2 % (37.0-47.0); HEMOGLOBIN 10.4 g/dl (12.0-16.0); IMMATURE GRANULOCYTE % (AUTO) 0.4 % (0.0-5.0); LYMPHOCYTES # (AUTO) 0.9 K/uL (0.60-3.4); LYMPHOCYTES % (AUTO) 34.7 (10.0-50.0); MEAN CORPUSCULAR HGB CONC 33.3 (31.8-35.4); MEAN CORPUSCULAR VOLUME 92.9 fl (81.0-99.0); MONOCYTES # (AUTO) 0.3 K/uL (0.4-2.0); MONOCYTES % (AUTO) 12.4 (0-10); NEUTROPHILS # (AUTO) 1.2 K/ul (2.0-6.9); NEUTROPHILS % (AUTO) 48.1; PLATELET COUNT 185 10^3/uL (140-440); RED BLOOD COUNT 3.36 10^6/ul (4.20-5.40); WHITE BLOOD COUNT 2.51 K/ul (4.6-10.2)
[2017-07-25 08:43] VITALS: BP 130/76; TEMP 98.2
[2017-07-25] MEDS ORDERED: PROCRIT SUBCUT STA (08:44)
== END 2017-07-25 08:12 | disposition home or self-care (01) ==
LOC: LAB 08:11
PROVIDERS: ATTEND Internal Medicine Hematology & Oncology
DX: N18.3 Chronic kidney disease, stage 3 (moderate) (principal); D63.1 Anemia in chronic kidney disease; D72.819 Decreased white blood cell count, unspecified
CPT/HCPCS: 36415; 85025; 96372

== ENCOUNTER 2017-08-08 07:54 | Outpatient (CLI) ==
[2013-04-14 18:39] VITALS: TEMP 98.9
[2015-11-16 09:22] VITALS: BMI 32.9
[2017-08-08 08:09] LABS: BASOPHILS % (AUTO) 0.4 % (0.0-3.0); EOSINOPHILS # (AUTO) 0.1 K/ul (0.0-0.7); EOSINOPHILS % (AUTO) 4.4 % (0.0-7.0); HEMATOCRIT 34.2 % (37.0-47.0); HEMOGLOBIN 11.1 g/dl (12.0-16.0); IMMATURE GRANULOCYTE % (AUTO) 0.4 % (0.0-5.0); LYMPHOCYTES # (AUTO) 0.9 K/uL (0.60-3.4); LYMPHOCYTES % (AUTO) 34.4 (10.0-50.0); MEAN CORPUSCULAR HEMOGLOBIN 30.9 pg (27.0-31.0); MEAN CORPUSCULAR HGB CONC 32.5 (31.8-35.4); MEAN CORPUSCULAR VOLUME 95.3 fl (81.0-99.0); MONOCYTES # (AUTO) 0.3 K/uL (0.4-2.0); NEUTROPHILS # (AUTO) 1.2 K/ul (2.0-6.9); NEUTROPHILS % (AUTO) 48.4; PLATELET COUNT 179 10^3/uL (140-440); RED BLOOD COUNT 3.59 10^6/ul (4.20-5.40)
== END 2017-08-08 07:55 | disposition home or self-care (01) ==
LOC: OPMED 07:54
PROVIDERS: ATTEND Internal Medicine Hematology & Oncology
DX: N18.3 Chronic kidney disease, stage 3 (moderate) (principal); D63.1 Anemia in chronic kidney disease; D72.819 Decreased white blood cell count, unspecified
CPT/HCPCS: 36415; 85025

== ENCOUNTER 2017-09-16 08:37 | Outpatient (CLI) ==
[2015-11-16 09:22] VITALS: BMI 32.9
[2017-09-16 08:56] LABS: HEMATOCRIT 31.6 % (37.0-47.0); HEMOGLOBIN 10.9 g/dl (12.0-16.0); IMMATURE GRANULOCYTE % (AUTO) 1.1 % (0.0-5.0); LYMPHOCYTES # (AUTO) 0.7 K/uL (0.60-3.4); LYMPHOCYTES % (AUTO) 12.3 (10.0-50.0); MEAN CORPUSCULAR HGB CONC 34.5 (31.8-35.4); MEAN CORPUSCULAR VOLUME 92.7 fl (81.0-99.0); MONOCYTES # (AUTO) 0.3 K/uL (0.4-2.0); MONOCYTES % (AUTO) 6.2 (0-10); NEUTROPHILS # (AUTO) 4.3 K/ul (2.0-6.9); NEUTROPHILS % (AUTO) 80.4; RED BLOOD COUNT 3.41 10^6/ul (4.20-5.40); WHITE BLOOD COUNT 5.35 K/ul (4.6-10.2)
[2017-09-16 09:34] LABS: PLATELET COUNT 188 10^3/uL (140-440)
[2017-09-16] MEDS ORDERED: PROCRIT SUBCUT STA (09:57)
[2017-09-16 09:59] VITALS: BP 152/56; TEMP 97
== END 2017-09-16 08:38 | disposition home or self-care (01) ==
LOC: LAB 08:37 → OPMED 08:38
PROVIDERS: ATTEND Internal Medicine Hematology & Oncology
DX: D72.819 Decreased white blood cell count, unspecified (principal)
CPT/HCPCS: 36415; 85025; 96372

== ENCOUNTER 2017-09-27 07:43 | Outpatient (CLI) ==
[2013-04-14 18:39] VITALS: TEMP 98.9
[2015-11-16 09:22] VITALS: BMI 32.9
[2017-09-27 08:16] LABS: BASOPHILS % (AUTO) 0.4 % (0.0-3.0); EOSINOPHILS # (AUTO) 0.1 K/ul (0.0-0.7); EOSINOPHILS % (AUTO) 2.4 % (0.0-7.0); HEMATOCRIT 34.9 % (37.0-47.0); HEMOGLOBIN 11.6 g/dl (12.0-16.0); IMMATURE GRANULOCYTE % (AUTO) 0.8 % (0.0-5.0); LYMPHOCYTES # (AUTO) 0.8 K/uL (0.60-3.4); LYMPHOCYTES % (AUTO) 30.4 (10.0-50.0); MEAN CORPUSCULAR HEMOGLOBIN 31.7 pg (27.0-31.0); MEAN CORPUSCULAR HGB CONC 33.2 (31.8-35.4); MEAN CORPUSCULAR VOLUME 95.4 fl (81.0-99.0); MONOCYTES # (AUTO) 0.4 K/uL (0.4-2.0); MONOCYTES % (AUTO) 13.8 (0-10); NEUTROPHILS # (AUTO) 1.3 K/ul (2.0-6.9); NEUTROPHILS % (AUTO) 52.2; PLATELET COUNT 156 10^3/uL (140-440); RED BLOOD COUNT 3.66 10^6/ul (4.20-5.40); WHITE BLOOD COUNT 2.53 K/ul (4.6-10.2)
== END 2017-09-27 07:44 | disposition home or self-care (01) ==
LOC: OPMED 07:43 → LAB 07:44
PROVIDERS: ATTEND Emergency Medicine
DX: D72.819 Decreased white blood cell count, unspecified (principal)
CPT/HCPCS: 36415; 85025

== ENCOUNTER 2017-10-09 08:55 | Outpatient (CLI) ==
[2013-04-14 18:39] VITALS: TEMP 98.9
[2015-11-16 09:22] VITALS: BMI 32.9
[2017-10-09 09:14] LABS: EOSINOPHILS # (AUTO) 0.2 K/ul (0.0-0.7); EOSINOPHILS % (AUTO) 5.1 % (0.0-7.0); HEMATOCRIT 34.3 % (37.0-47.0); HEMOGLOBIN 11.2 g/dl (12.0-16.0); IMMATURE GRANULOCYTE % (AUTO) 0.7 % (0.0-5.0); LYMPHOCYTES % (AUTO) 34.6 (10.0-50.0); MEAN CORPUSCULAR HEMOGLOBIN 31.4 pg (27.0-31.0); MEAN CORPUSCULAR HGB CONC 32.7 (31.8-35.4); MEAN CORPUSCULAR VOLUME 96.1 fl (81.0-99.0); MONOCYTES # (AUTO) 0.3 K/uL (0.4-2.0); MONOCYTES % (AUTO) 10.8 (0-10); NEUTROPHILS # (AUTO) 1.4 K/ul (2.0-6.9); NEUTROPHILS % (AUTO) 47.8; PLATELET COUNT 169 10^3/uL (140-440); RED BLOOD COUNT 3.57 10^6/ul (4.20-5.40); WHITE BLOOD COUNT 2.95 K/ul (4.6-10.2)
== END 2017-10-09 08:56 | disposition home or self-care (01) ==
LOC: LAB 08:55
PROVIDERS: ATTEND Internal Medicine Hematology & Oncology
DX: D72.819 Decreased white blood cell count, unspecified (principal)
CPT/HCPCS: 36415; 85025

== ENCOUNTER 2017-10-24 10:06 | Outpatient (CLI) ==
[2013-04-14 18:39] VITALS: TEMP 98.9
[2015-11-16 09:22] VITALS: BMI 32.9
== END 2017-10-24 10:07 | disposition home or self-care (01) ==
LOC: LAB 10:06
PROVIDERS: ATTEND Internal Medicine Hematology & Oncology
DX: N18.3 Chronic kidney disease, stage 3 (moderate) (principal); D63.1 Anemia in chronic kidney disease; D72.819 Decreased white blood cell count, unspecified
CPT/HCPCS: 36415; 85025

== ENCOUNTER 2017-11-08 08:19 | Outpatient (CLI) ==
[2013-04-14 18:39] VITALS: TEMP 98.9
[2015-11-16 09:22] VITALS: BMI 32.9
== END 2017-11-08 08:20 | disposition home or self-care (01) ==
LOC: OPMED 08:19
PROVIDERS: ATTEND Internal Medicine Hematology & Oncology
DX: D72.819 Decreased white blood cell count, unspecified (principal)
CPT/HCPCS: 36415; 85025

== ENCOUNTER 2017-11-21 09:30 | Outpatient (CLI) ==
[2015-11-16 09:22] VITALS: BMI 32.9
[2017-11-21 10:29] VITALS: BP 132/76; TEMP 96.9
[2017-11-21] MEDS ORDERED: PROCRIT SUBCUT STA (10:40)
== END 2017-11-21 09:31 | disposition home or self-care (01) ==
LOC: OPMED 09:30
PROVIDERS: ATTEND Internal Medicine Hematology & Oncology
DX: E78.5 Hyperlipidemia, unspecified (principal); J44.9 Chronic obstructive pulmonary disease, unspecified; I10 Essential (primary) hypertension; M47.26 Other spondylosis with radiculopathy, lumbar region; D72.819 Decreased white blood cell count, unspecified
CPT/HCPCS: 36415; 80053; 80061; 84443; 85025; 96372

== ENCOUNTER 2017-12-06 08:37 | Outpatient (CLI) ==
[2013-04-14 18:39] VITALS: TEMP 98.9
[2015-11-16 09:22] VITALS: BMI 32.9
== END 2017-12-06 08:38 | disposition home or self-care (01) ==
LOC: OPMED 08:37
PROVIDERS: ATTEND Internal Medicine Hematology & Oncology
DX: D72.819 Decreased white blood cell count, unspecified (principal)
CPT/HCPCS: 36415; 85025

== ENCOUNTER 2018-01-09 09:41 | Outpatient (CLI) ==
[2013-04-14 18:39] VITALS: TEMP 98.9
[2015-11-16 09:22] VITALS: BMI 32.9
== END 2018-01-09 09:42 | disposition home or self-care (01) ==
LOC: LAB 09:41
PROVIDERS: ATTEND Internal Medicine Hematology & Oncology
DX: D72.819 Decreased white blood cell count, unspecified (principal)
CPT/HCPCS: 36415; 85025

== ENCOUNTER 2018-01-14 10:34 | Outpatient (CLI) ==
[2013-04-14 18:39] VITALS: TEMP 98.9
[2015-11-16 09:22] VITALS: BMI 32.9
--- NOTE | 2018-01-14 13:18 | DI ---
EXAM: RIGHT HIP, 2 VIEWS HISTORY: Right hip pain FINDINGS: No fracture or joint dislocation is identified. Mild hip osteoarthritis. At least mild b ilateral sacroiliac joint arthritis. Moderate degenerative changes of the lower spine. Bone density appears decreased. Vascular calcifications are noted. IMPRESSION: Osteoarthritis affecting the hip and both sacroiliac joints.
--- NOTE | 2018-01-14 13:18 | DI ---
EXAM: Single frontal view of the pelvis HISTORY: Pain in the right hip. COMPARISON: CT right hip 05/10/2017 and right hip x-rays same day FINDINGS: The pelvic ring is intact. Pubic symphysis is normal. Left hip arthroplasty is unremarkab le. There is no definitive fracture of the right hip. Soft tissues are unremarkable. IMPRESSION: 1. No acute abnormality of the right hip. 2. Mild degenerative disease of the lumbar spine and left hip arthroplasty.
== END 2018-01-14 10:35 | disposition home or self-care (01) ==
LOC: RAD 10:34
PROVIDERS: ATTEND Emergency Medicine
DX: M25.551 Pain in right hip (principal)

== ENCOUNTER 2018-01-21 11:58 | Outpatient (CLI) ==
[2013-04-14 18:39] VITALS: TEMP 98.9
[2015-11-16 09:22] VITALS: BMI 32.9
== END 2018-01-21 11:59 | disposition home or self-care (01) ==
LOC: LAB 11:58
PROVIDERS: ATTEND Internal Medicine Hematology & Oncology
DX: D72.819 Decreased white blood cell count, unspecified (principal)
CPT/HCPCS: 36415; 85025

== ENCOUNTER 2018-02-12 08:35 | Outpatient (CLI) ==
[2013-04-14 18:39] VITALS: TEMP 98.9
[2015-11-16 09:22] VITALS: BMI 32.9
== END 2018-02-12 08:36 | disposition home or self-care (01) ==
LOC: LAB 08:35
PROVIDERS: ATTEND Internal Medicine Hematology & Oncology
DX: D72.819 Decreased white blood cell count, unspecified (principal)
CPT/HCPCS: 36415; 85025

== ENCOUNTER 2018-02-21 08:51 | Outpatient (CLI) ==
[2013-04-14 18:39] VITALS: TEMP 98.9
[2015-11-16 09:22] VITALS: BMI 32.9
== END 2018-02-21 08:52 | disposition home or self-care (01) ==
LOC: LAB 08:51
PROVIDERS: ATTEND Internal Medicine Hematology & Oncology
DX: D72.819 Decreased white blood cell count, unspecified (principal)
CPT/HCPCS: 36415; 85025

== ENCOUNTER 2018-02-24 12:19 | Outpatient (CLI) ==
[2015-11-16 09:22] VITALS: BMI 32.9
[2018-02-24] MEDS ORDERED: PROCRIT SUBCUT STA (12:38)
[2018-02-24 12:45] VITALS: BP 139/79; TEMP 97.7
== END 2018-02-24 12:20 | disposition home or self-care (01) ==
LOC: OPMED 12:19
PROVIDERS: ATTEND Internal Medicine Hematology & Oncology
DX: D72.819 Decreased white blood cell count, unspecified (principal)
CPT/HCPCS: 96372

== ENCOUNTER 2018-03-07 08:41 | Outpatient (CLI) ==
[2013-04-14 18:39] VITALS: TEMP 98.9
[2015-11-16 09:22] VITALS: BMI 32.9
--- NOTE | 2018-03-07 10:42 | MAMMO ---
EXAM: Digital screening mammogram with tomosynthesis HISTORY: Screening COMPARISON: 12/14/2016 FINDINGS: Digital MLO and CC views of the right and left breast were performed. Tomosynthesis was p erformed. Computer aided detection was utilized. The breast tissue is heterogeneously dense, which could obscure small masses. Benign and vascular bilateral calcifications. There is no evidence for m ass, asymmetry, distortion, or suspicious calcifications in either breast. IMPRESSION: 1. No evidence of malignancy in the right or left breast. 2. Annual screening mammogram is recommended in one year. BIRADS category 2, benign
== END 2018-03-07 08:42 | disposition home or self-care (01) ==
LOC: RAD 08:41
PROVIDERS: ATTEND Emergency Medicine
DX: Z12.31 Encounter for screening mammogram for malignant neoplasm of breast (principal); D72.819 Decreased white blood cell count, unspecified
CPT/HCPCS: 36415; 77067; 82728; 83540; 83550

== ENCOUNTER 2018-03-21 08:38 | Outpatient (CLI) ==
[2015-11-16 09:22] VITALS: BMI 32.9
[2018-03-21] MEDS ORDERED: PROCRIT SUBCUT STA (09:27)
[2018-03-21 09:32] VITALS: BP 148/85; TEMP 97.5
== END 2018-03-21 08:39 | disposition home or self-care (01) ==
LOC: OPMED 08:38
PROVIDERS: ATTEND Internal Medicine Hematology & Oncology
DX: D72.819 Decreased white blood cell count, unspecified (principal)
CPT/HCPCS: 36415; 85025; 96372

== ENCOUNTER 2018-04-04 08:44 | Outpatient (CLI) ==
[2013-04-14 18:39] VITALS: TEMP 98.9
[2015-11-16 09:22] VITALS: BMI 32.9
== END 2018-04-04 08:45 | disposition home or self-care (01) ==
LOC: OPMED 08:44
PROVIDERS: ATTEND Internal Medicine Hematology & Oncology
DX: D72.819 Decreased white blood cell count, unspecified (principal)
CPT/HCPCS: 36415; 85025

== ENCOUNTER 2018-04-18 08:31 | Outpatient (CLI) ==
[2013-04-14 18:39] VITALS: TEMP 98.9
[2015-11-16 09:22] VITALS: BMI 32.9
== END 2018-04-18 08:32 | disposition home or self-care (01) ==
LOC: LAB 08:31
PROVIDERS: ATTEND Internal Medicine Hematology & Oncology
DX: D72.819 Decreased white blood cell count, unspecified (principal)
CPT/HCPCS: 36415; 80053; 82607; 82728; 82746; 83540; 83550; 85025

== ENCOUNTER 2018-05-02 08:01 | Outpatient (CLI) ==
[2013-04-14 18:39] VITALS: TEMP 98.9
[2015-11-16 09:22] VITALS: BMI 32.9
== END 2018-05-02 08:02 | disposition home or self-care (01) ==
LOC: LAB 08:01
PROVIDERS: ATTEND Internal Medicine Hematology & Oncology
DX: D72.819 Decreased white blood cell count, unspecified (principal)
CPT/HCPCS: 36415; 85025

== ENCOUNTER 2018-05-16 08:00 | Outpatient (CLI) ==
[2013-04-14 18:39] VITALS: TEMP 98.9
[2015-11-16 09:22] VITALS: BMI 32.9
== END 2018-05-16 08:01 | disposition home or self-care (01) ==
LOC: LAB 08:00
PROVIDERS: ATTEND Internal Medicine Hematology & Oncology
DX: D72.819 Decreased white blood cell count, unspecified (principal)
CPT/HCPCS: 36415; 85025

== ENCOUNTER 2018-05-30 08:11 | Outpatient (CLI) ==
[2013-04-14 18:39] VITALS: TEMP 98.9
[2015-11-16 09:22] VITALS: BMI 32.9
--- NOTE | 2018-05-30 08:51 | MAMMO ---
EXAM: Left digital diagnostic mammogram (2-D and 3-D) History: Left breast palpable abnormality. Comparison: Bilateral mammogram to 03/07/2018 Findings: MLO and CC views of bilateral breasts demonstrate heterogeneously dense breast parenchyma which can obscure small lesions. Stable benign scattered vascular calcifications. Just beneath the skin within the medial left breast there is a 1 cm well circumscribed oval nodule. This correlates t o the palpable event. Impression: Indeterminate subcutaneous left breast nodule. Recommend further evaluation with ultras ound. BIRADS 0
--- NOTE | 2018-05-30 09:08 | US ---
EXAM: Left breast ultrasound. History: Left breast palpable abnormality. Comparison: Left diagnostic mammogram 05/30/2018 Technique: Multiple sonographic images through the left breast were obtained. Color duplex Doppler was used to interrogate vascular flow. Findings: Within the left breast at 10 o'clock 12 cm from nipple just beneath the skin there is a 1. 4 cm focal cystic lesion with internal echoes and surrounding hypervascularity. This correlates with the palpable event. Impression: A cystic left breast lesion described above, probably represents an infected sebaceous c yst and is probably benign. Recommend clinical consultation and a follow-up ultrasound in 3 - 6 william hs to document stability or resolution. BIRADS 3
== END 2018-05-30 08:12 | disposition home or self-care (01) ==
LOC: RAD 08:11
PROVIDERS: ATTEND Emergency Medicine
DX: N63.22 Unspecified lump in the left breast, upper inner quadrant (principal); R92.8 Other abnormal and inconclusive findings on diagnostic imaging of breast; D72.819 Decreased white blood cell count, unspecified
CPT/HCPCS: 36415; 82728; 83540; 83550; 85025

== ENCOUNTER 2018-06-13 08:44 | Outpatient (CLI) ==
[2015-11-16 09:22] VITALS: BMI 32.9
[2018-06-13] MEDS ORDERED: PROCRIT SUBCUT STA (09:28)
[2018-06-13 09:31] VITALS: BP 157/62; TEMP 98.2
== END 2018-06-13 08:45 | disposition home or self-care (01) ==
LOC: LAB 08:44 → OPMED 08:45
PROVIDERS: ATTEND Internal Medicine Hematology & Oncology
DX: D72.819 Decreased white blood cell count, unspecified (principal)
CPT/HCPCS: 36415; 85025; 96372

== ENCOUNTER 2018-07-14 08:04 | Outpatient (CLI) ==
[2015-11-16 09:22] VITALS: BMI 32.9
[2018-07-14 08:53] VITALS: TEMP 98.2
[2018-07-14] MEDS ORDERED: PROCRIT SUBCUT STA (08:55)
== END 2018-07-14 08:05 | disposition home or self-care (01) ==
LOC: LAB 08:04 → OPMED 08:05
PROVIDERS: ATTEND Internal Medicine Hematology & Oncology
DX: D72.819 Decreased white blood cell count, unspecified (principal)
CPT/HCPCS: 36415; 82728; 83540; 83550; 85025; 96372

== ENCOUNTER 2018-07-21 08:06 | Observation (INO) ==
[2018-07-21] MEDS ORDERED: DUONEB NEB STA (08:23)
[2018-07-21] MEDS ORDERED: ZITHROMAX PO STA (08:24)
[2018-07-21] MEDS ORDERED: SOLU-MEDROL 125 MG IVP STA (08:24)
[2018-07-21] MEDS ORDERED: ROCEPHIN 1 GM in SODIUM CHLORIDE 50 ML IV STA (08:24)
[2018-07-21] MEDS ORDERED: ROCEPHIN ONE (08:53)
--- NOTE | 2018-07-21 09:53 | CT ---
EXAM: CT chest without contrast HISTORY: Shortness of breath with cough and congestion COMPARISON: CT chest 06/12/2017 and numerous priors TECHNIQUE: Serial axial images of the chest were obtained from the lung apices to the upper abdomen without contrast. These were viewed in multiple planes. FINDINGS: The thyroid is normal. The visualized vessels demonstrate moderate atherosclerotic diseas e of the aorta without aneurysm or stenosis. There postsurgical changes consistent with prior sternot remedios. Low attenuation material in the anterior mediastinum is stable. The heart is normal in size wi th trace pericardial effusion. There are scattered calcified lymph nodes. There are scattered media stinal and hilar lymph nodes all measuring less than 1 cm in diameter and appear unchanged. There is no pneumothorax or pleural effusion. There is mild ground-glass and airway thickening with nodular ground-glass in the right middle lobe. There is nodularity adjacent to the fissure in the ri ght lower lobe with mild ground-glass on image 30. There is minimal airway thickening in the inferio r aspect of the right upper lobe. There is minimal ground-glass in the dependent right lower lobe. There is minimal left lower lobe ground-glass. The airways are patent. The soft tissues in the upper abdomen demonstrate a stable 1.2 cm left adrenal nodule with Hounsfield units suggestive of an adenoma. There has been a prior cholecystectomy. The osseous structures dem onstrate degenerative disease of the spine. IMPRESSION: 1. Airway thickening with patchy nodular ground-glass suggestive of a pneumonia. 2. Moderate atherosclerotic disease and postsurgical changes of prior sternotomy. 3. Low attenuation material in the anterior mediastinum is unchanged, with Hounsfield units consiste nt with fluid. 4. Left adrenal nodule is unchanged, with Hounsfield units suggestive of adenoma. 5. Sequela of old granulomatous disease.
--- NOTE | 2018-07-21 10:30 | ED.PDOC ---
General ED Provider: Dr. CRUZ MALDONADO Chief Complaint: Respiratory Complaint Stated Complaint: cough, chills , wheezing , short of air Time Seen by Physician: 08:10 Mode of Arrival: Walk-In Information Source: Patient Exam Limitations: No limitations Primary Care Provider: NINA DEVLIN Nursing and Triage Documentation Reviewed and Agree: Yes Does patient meet sepsis criteria?: Yes If yes, has appropriate treatment been initiated?: No System Inflammatory Response Syndrome: Not Applicable Sepsis Protocol: For patient's 13 years and over: Temp is 96.8 and below OR 101 and greater Pulse >90 BPM Resp >20/minute Acutely Altered Mental Status Are patient's symptoms suggestive of a new infection, such as: -Pneumonia -Skin, Soft Tissue -Endocarditis -UTI -Bone, Joint Infection -Implantable Device -Acute Abdominal Infection -Wound Infection -Meningitis -Blood Stream Catheter Infection -Unknown Respiratory Complaint Exam - Respiratory Complaint/Exam Onset/Duration: 3 dayshas had 1 round of antibiotics by her provider but is not improved Symptoms Are: Still present Timing: Intermittent Initial Severity: Moderate Current Severity: Moderate Location: Nose, Throat, Chest Character: Reports: Non-productive cough Aggravating: Reports: URI Alleviating: Reports: Spontaneous resolution Associated Signs and Symptoms: Reports: URI. Denies: Rapid breathing, Dyspnea, Fever, Chills, Chest pain, Pleuritic chest pain, Wheezing, Hemoptysis, Dizziness , Calf pain, Calf swelling, Edema, Nasal congestion, Hoarseness, Sinus discomfort, Vomiting, Sore throat, Weight loss, Decreased oral intake, Increased thirst, Increased appetite, Increased urination Related History: Reports: Similar episode History of Healthcare-Acquired Pneumonia: No Related Surgical History: Reports: None Pulmonary Embolism Risk Factors: Bedrest, Smoking (1 pack per day) Cardiac Risk Factors: Reports: CAD, Smoking, Elevated lipids, Diabetes, Hypertension Pseudomonas Risk Factors: Reports: Chronic Lung Disease (on home o2 at nights) Tuberculosis Risk Factors: Reports: None Status Asthmaticus Risk Factors: Reports: None Home Oxygen Use: Yes (QHS) Recent Stress Test: No Recent Echo/LV Function: No Current Antibiotic Use: No Current Asthma Medication Use: No Respiratory Distress: None Inadequate Respiratory Effort: No Dysphagia Present: No Stridor Present: No JVD Present: No Retractions: Not Present Diminished Breath Sounds: No Sinus Tenderness: None Differential Diagnoses: COPD Exacerbation, Pneumonia, Bronchitis Quality Indicators For Pneumonia: Antibiotics in 6hr-admit, SpO2 assessed, Empiric Antibiotic Rx, Vital signs, Mental status assessed Non-Traumatic Chest Pain Syncope: EKG Performed Review of Systems - Review Of Systems Constitutional: Reports: Malaise Eyes: Reports: No symptoms Ears, Nose, Mouth, Throat: Reports: No symptoms Respiratory: Reports: Cough, Wheezing Cardiac: Reports: No symptoms GI: Reports: No symptoms : Reports: No symptoms Musculoskeletal: Reports: No symptoms Skin: Reports: No symptoms Neurological: Reports: No symptoms Endocrine: Reports: No symptoms Hematologic/Lymphatic: Reports: No symptoms All Other Systems: Reviewed and Negative Past Medical History - Past Medical History Previously Healthy: Yes Endocrine: Reports: None, Dyslipidemia ((OLD RECORD)) Cardiovascular: Reports: CAD ((OLD RECORD)), Hypertension, CHF ((OLD RECORD)) Respiratory: Reports: COPD, Asthma, Bronchitis ((OLD RECORD)) Hematological: Reports: None Gastrointestinal: Reports: None, GERD ((OLD RECORD)) Genitourinary: Reports: CKD Neuro/Psych: Reports: TIA, Anxiety, Depression, Schizophrenia ((OLD RECORD)) Musculoskeletal: Reports: Arthritis, Joint Pain ((OLD RECORD)) Cancer: Reports: None, Other (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 left hip replaced), Other (Mass around heart removed. left hip replaced, LUNG SX(OLD RECORD)) - Family History Family History: Reports: Heart (mother [place] in 40's now 80 and well), Cancer ( real father in 50s possible brain cancer), Unknown - Social History Smoking Status: Current every day smoker Hx Substance Use: No Alcohol Screening: None - Immunizations Influenza Vaccine within 12 Months: Yes Pneumococcal Vaccine up to Date: No (UNSURE) Physical Exam - Physical Exam Appearance: Well-appearing, No pain distress, Well-nourished Eyes: HUSSAIN, EOMI, Conjunctiva clear ENT: Ears normal, Nose normal, Oropharynx normal Respiratory: Rhonchi, Wheezes Cardiovascular: RRR, Pulses normal, No rub, No murmur GI/: Soft, Nontender, No masses, Bowel sounds normal, No Organomegaly Musculoskeletal: Normal strength, ROM intact, No edema, No calf tenderness Skin: Warm, Dry, Normal color Neurological: Sensation intact, Motor intact, Reflexes intact, Cranial nerves intact, Alert, Oriented Psychiatric: Affect appropriate, Mood appropriate Interpretation - Radiology Interpretation Radiology Interpretation By: Radiologist Radiology Results: Positive (PNEUMONIA) - Scientific Manager Rate: Normal Rhythm: Sinus Ectopy: None - EKG Interpretation Rate: Normal Rhythm: Sinus Ectopy: None [place]: Left ST Segment: Normal Re-Evaluation - Re-Evaluation Time of Re-Evaluation: 10:00 Status: Improved Vital Signs Stable: Yes Pain Level: 0 Appearance: NAD Lungs: Clear Skin: Warm and Dry Neuro: Alert and Oriented X3 CV: RRR Physician Notification - Case Discussed Physician Notified: JERRY PANIAGUA Time of Notification: 10:41 (ADMITT TO OBS ) Admit To: Observation Critical Care Note - Critical Care Note Total Time (mins): 0 Course - Course Hematology/Chemistry: 07/21/18 08:39 07/21/18 08:39 Orders, Labs, Meds: Lab Review 07/21/18 07/21/18 07/21/18 08:39 08:39 08:40 WBC 4.44 L RBC 3.95 L Hgb 12.3 Hct 37.5 MCV 94.9 MCH 31.1 H MCHC 32.8 RDW Coeff of Mine 16.0 H Plt Count 160 Immature Gran % (Auto) 0.7 Neut % (Auto) 75.2 Lymph % (Auto) 13.5 [place] % (Auto) 8.1 Eos % (Auto) 1.8 Baso % (Auto) 0.7 Immature Gran # (Auto) 0.0 Neut # (Auto) 3.3 Lymph # (Auto) 0.6 [place] # (Auto) 0.4 Eos # (Auto) 0.1 Baso # (Auto) 0.0 Puncture Site R rad O2 Saturation 89.0 L ABG pH 7.401 ABG pCO2 34.4 L ABG pO2 56.0 L* ABG HCO3 21.4 L ABG Total CO2 22 ABG Base Excess -3 L Aftab Test + FiO2 % 21.0 Sodium 134.6 L Potassium 4.15 Chloride 107.3 H Carbon Dioxide 24.5 Anion Gap 6.95 BUN 27.3 H Creatinine 1.56 H Estimated GFR (MDRD) 34.00 BUN/Creatinine Ratio 17.50 Glucose 87.7 Calcium 8.40 Total Bilirubin 0.46 AST 25.0 ALT 15.9 Alkaline Phosphatase 60.1 Total Creatine Kinase < 20.0 L Troponin I 0.019 Total Protein 6.49 Albumin 3.42 L Globulin 3.07 Albumin/Globulin Ratio 1.11 Orders Category Date Time Status ABG DRAW REQUEST Stat CARDIO 07/21/18 08:22 Completed EKG-(ED ONLY) Stat CARDIO 07/21/18 08:22 Completed NEBULIZER TREATMENT Stat CARDIO 07/21/18 08:23 Completed ED IV/MEDIPORT/POWERPORT .ONCE EMERGENCY 07/21/18 08:24 Active ABG Stat LAB 07/21/18 08:40 Completed BLOOD CULTURE (ED ONLY) Stat LAB 07/21/18 Ordered CBC W/ AUTO DIFF Stat LAB 07/21/18 08:39 Completed COMPREHENSIVE METABOLIC PANEL Stat LAB 07/21/18 08:39 Completed CREATINE KINASE Stat LAB 07/21/18 08:39 Completed LACTIC ACID Stat LAB 07/21/18 10:27 Ordered PROCALCITONIN Stat LAB 07/21/18 Ordered TROPONIN I Stat LAB 07/21/18 08:39 Completed 0.9 % Sodium Chloride [Saline Flush] MEDS 07/21/18 08:24 Active 1 syr IVF PRN PRN Azithromycin [Zithromax] MEDS 07/21/18 08:24 Discontinued 1,000 mg PO ONCE STA Ceftriaxone Sodium [Rocephin] MEDS 07/21/18 08:53 Discontinued 1 gm .ROUTE .STK-MED ONE Ceftriaxone Sodium [Rocephin] 1 gm MEDS 07/21/18 08:24 Discontinued 0.9 % Sodium Chloride [Sodium Chloride] 50 ml IV ONCE Ipratropium/Albuterol Neb [Duoneb] MEDS 07/21/18 08:23 Discontinued 1 vial NEB ONCE STA Methylprednisolone Sod Succ/Pf [Solu-Medrol 125 mg] MEDS 07/21/18 08:24 Discontinued 125 [address] IVP ONCE STA CT CHEST W/O CONTRAST Stat RADS 07/21/18 08:22 Completed Medications Generic Name Dose Route Start Last Admin Trade Name Freq PRN Reason Stop Dose Admin Sodium Chloride 1 syr 07/21/18 08:24 07/21/18 09:17 Saline Flush IVF 1 syr PRN PRN Administration To flush IV Discontinued Medications Generic Name Dose Route Start Last Admin Trade Name Freq PRN Reason Stop Dose Admin Albuterol/Ipratropium 1 vial 07/21/18 08:23 07/21/18 08:45 Duoneb NEB 07/21/18 08:24 1 vial ONCE STA Administration Azithromycin 1,000 mg 07/21/18 08:24 07/21/18 09:14 Zithromax PO 07/21/18 08:25 1,000 mg ONCE STA Administration Ceftriaxone Sodium 1 gm/ 50 mls @ 75 mls/hr 07/21/18 08:24 07/21/18 09:15 Sodium Chloride IV 07/21/18 09:03 75 mls/hr ONCE STA Administration Methylprednisolone Sodium Succinate 125 mg 07/21/18 08:24 07/21/18 09:16 Solu-Medrol 125 Mg IVP 07/21/18 08:25 125 mg ONCE STA Administration Vital Signs: Temp Pulse Resp BP Pulse Ox 07/21/18 08:08 99.5 F 94 H 24 172/91 H 89 L Departure - Departure Time of Disposition: 10:42 Disposition: PLACED OBSERVATION Discharge Problem: Pneumonia Qualifiers: Pneumonia type: due to unspecified organism Instructions: Pneumonia (ED) Condition: Good Pt referred to PMD for follow-up: Yes IPMP verified?: No Allergies/Adverse Reactions: Allergies codeine Adverse Reaction (Verified 07/21/18 08:11) talks in her sleep contrast dye Adverse Reaction (Mild, Uncoded 03/21/18 09:36) Rash Home Medications: Ambulatory Orders Clonazepam [Klonopin] 0.5 mg PO BID 04/14/13 Albuterol Sulfate [Proair Hfa] 90 mcg INH PRN PRN 10/18/14 Atorvastatin Calcium [Lipitor] 20 mg PO BEDTIME 07/14/15 Olanzapine [Zyprexa] 10 mg PO BEDTIME 07/14/15 Clopidogrel Bisulfate [Plavix] 75 mg PO DAILY 11/16/15 Aspirin [Aspir-Low] 81 mg PO DAILY 11/27/16 Iron 65 mg PO DAILY 11/27/16 Hydralazine HCl 25 mg PO BID 07/21/18 Disposition Discussed With: Patient, Family
[2018-07-21 11:33] VITALS: BMI 29.4
[2018-07-21] MEDS: SODIUM CHLORIDE 1,000 ML IV SCH ×2 (11:57→23:43)
--- NOTE | 2018-07-21 12:41 | PCM ---
- Chief Complaint Chief Complaint: COPD Exacerbation, possible pneumonia. - History of Present Illness History of Present Illness: 62 yo former patient of Dr. Romero, last saw AIRLINE RESERVATION AGENT Babakumbwily on 07/14/18. She prewented for 2 month f/u stating was seen for flu symptom on 07/04/18. Reviewed notes from 07/04/18 productive cough, yellow phlegm, tired/fatigue, rhinorrhea, no other issues. BP at that OV 159/87, Temp 98.1, RR 20, BMI 29.4. She was concnered it would lead to pneumonia. Increased sputum, increased SOA and increased DAVILA/cough. Smokes 1 ppd. Son at home just had renal transplant. She was dx with copd exacerbation given 10mg prednisone BID and keflex. This was not likely strong enough. REturned 07/14/18, Still w/ COPD. She has history of NYHA class 2 CHF diastolic. She was given Rx for albuterl nebs, methyl pred 4mg po daily. Presented to ER today by DR. Harris, 810 w/ respiratory complaint and wheezing/SOA. Walked into clinic. Patient of AIRLINE RESERVATION AGENT bozena now according to list. She did meet SIRS criteria based on her vitals. Symptomatic over past 1 week, 1 round of abx by provider, did not improve. Keflex was used, but likely not good choice for her. URI, nasal drainage, cough , congestion. She denid dyspnea, fever, chills, chest pain, puerisy, wheezing, hemoptysis, dizziness N/V/D, calf pain/swelling, weight loss, decreased PO intake to the ER team. Similar episode history. Smokes 1ppd. History of CAD, elevated lipid (mentioned DM) but she is not diabetic per her report). History of Chronic pulmonary disease on 2 L O2 at night. DDX in ER bronchitis, pnuemonia, COPD exacerbation. Previous records dyslipidemia, CAD, HTN, CHF diastolic, COPD, asthma, bronchitis, GERD, TIA, anxiety, depression, schizophrenia, arthritis, Lupus. Presents today with worsening URI, cough, rhinorrhea, DAVILA, PND, productive phlegm. It was presented to me that she was tx with z cheryl, but she was actually treated with keflex. She was started in Er on levaquin. EKG personally reviewed and QTC was okay at 442. We will treat with the levaquin for total of 5 days. She has received 1 Gram of rocephin in ER and 1 Gram azithro in ER. ON Tele and QTC is okay. She has no chest pain, notes having to sleep on >2 pillows, trouble lying supine. History of diastolic dysfunction, no major changes in weight noted. 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 She is having some difficulty breathing , using pulm meds at home. She has no other concerns/complaints at present except difficulty breathing. - Review of Systems Constitutional: fever, chills, weakness, fatigue, loss of appetite. No: sweats , other Eyes: No: blurred vision, double-vision, discharge, itching, pain, redness, photophobia, other Ears: No: pain, bleeding, drainage, ringing, hearing loss, other Nose: congestion. No: bleeding, discharge, other Throat: pain, swelling, voice change. No: other Mouth: No: bleeding, pain, swelling, other Respiratory: cough, shortness of air, wheeze, pain with breathing Cardiovascular: No: chest pain, left arm pain, diaphoresis, PND, orthopnea, edema, palpitations, syncope, other Gastrointestinal: nausea, vomiting (this am with stool incontinence. ). No: abdominal pain, diarrhea, melena, hematemesis, hematochezia, dysphagia, constipation, other Genitourinary: No: dysuria, hematuria, frequency, incontinence, flank pain, vaginal discharge, abnormal bleeding, pelvic pain, other Neurological: No: headache, other, dizziness, seizure, numbness, weakness, speech difficulty, problems with walking, tremor, fainting Musculoskeletal: No: pain, swelling in joints, other Skin: No: rash, pruritus, lacerations, wounds, bruising, other Immunology: No: hives, itching, frequent infections, difficulty healing, other Hematology: No: easy bruising, easy bleeding, swollen glands, other Endocrine: No: weight changes, cold intolerance, heat intolerance, excessive thirst, excessive hunger, polyuria, other Psychiatric: No: depression, anxiety, sleeplessness, hopelessness, suicidal, hallucinations, other Habits: tobacco use. No: substance use, alcohol use, other - Past Medical History Past Medical History: COPD, Breast lesion on mammo, dyslipidemia, essential HTN , OA, primary Osteo, CAD, CHF, Tobacco. Obesity BMI 29.7. Leukopenia follows with manager process. - Past Surgical History Past Surgical History: Adenoidectomy, shayan, joint replacement, Hip surgery, tonsillectomy. Mass removed from heart, sternotomy. - Allergies Allergies/Adverse Reactions: Allergies Allergy/AdvReac Type Severity Reaction Status Date / Time codeine AdvReac talks in Verified 07/21/18 08:11 her sleep contrast dye AdvReac Mild Rash Uncoded 03/21/18 09:36 - Medications Medications: Medications Generic Name Dose Route Start Last Admin Trade Name Freq PRN Reason Stop Dose Admin Aspirin 81 mg 07/22/18 08:00 Aspirin Ec PO DAILYWM [facility] Atorvastatin Calcium 20 mg 07/21/18 21:00 Lipitor PO BEDTIME PINKY Carvedilol 3.125 mg 07/21/18 17:30 Coreg PO BIDWM PINKY Clonazepam 0.5 mg 07/21/18 21:00 Klonopin PO BID PINKY Clopidogrel Bisulfate 75 mg 07/22/18 09:00 Plavix PO DAILY PINKY Fenofibrate 160 mg 07/22/18 09:00 Triglide PO DAILY PINKY Furosemide 20 mg 07/21/18 17:00 Lasix Tab PO BIDAC PINKY Hydralazine HCl 25 mg 07/21/18 21:00 Apresoline PO BID PINKY Ceftriaxone Sodium 1 gm/ 50 mls @ 75 mls/hr 07/22/18 09:00 Sodium Chloride IV DAILY PINKY Levofloxacin/Dextrose 500 mg/ 100 mls @ 100 mls/hr 07/22/18 09:00 Dextrose IV DAILY PINKY Sodium Chloride 1,000 mls @ 75 mls/hr 07/21/18 11:00 07/21/18 11:57 Sodium Chloride IV 75 mls/hr .[id number] PINKY Administration Losartan Potassium 100 mg 07/22/18 09:00 Cozaar PO DAILY PINKY Sodium Chloride 1 syr 07/21/18 08:24 07/21/18 09:17 Saline Flush IVF 1 syr PRN PRN Administration To flush IV - Family History Past Family History: Mother arthritis, Br Ca, mastectomy, hypothyroid. Father aneursym brain, possible GA. G4_4 ages 43, 40,39,37 yr old kids. 1 of sons has kidney transplant. - Social History Past Social History: lives w/ 2 sons. NO work, SSI/Disability smokes 1ppd> 20 years. - Vital Signs Temperature: 98.9 F Pulse Rate: 86 Respiratory Rate: 20 Blood Pressure: 172/91 O2 Sat by Pulse Oximetry: 92 - Body Composition Height: 5 ft 2 in Weight: 160 lb 14.999 oz Body Mass Index (BMI): 29.4 - Physical Examination HEENT: Constitutional: Appearance-No acute distress, Consistent with stated age. Orientation- Oriented x 3, alertGait-Normal pace, normal arm movement. Build and Nutrition-[obese female] General- Patient is pleasant and cooperative with the interview and exam. Integumentary: General-No rashes, ulcers or lesions. Palpation- Normal skin moisture/turgor. Skin is warm to touch, appropriate. Capillary refill is normal bilateral Upper and lower extremity. With nurse christofer present, no rash under breasts, no rash in intertriginous zones. No sacral sores/lesions. +Stool in underwear. Head/Neck: Head- normocephalic and atraumatic. Neck- without visible/palpable lumps or pulsations. Palpation- No bony tenderness about head/neck along frontal, occipital, temporal, parietal, mastoid, jawline, zygoma, orbit or any other location. NO temporal artery tenderness. No TMJ tenderness. Neck Supple. Thyroid-No thyromegaly, no nodules Eye: Bilaterally PERRLA, EOMI. No discharge. Upper and lower eyelids are normal. Sclera/conjunctiva normal without discharge. Cornea is normal and clear. Lens is normal. Eyeball appears normal. No ciliary flushing, no conjunctival injection. ENMT: Pinna- normal without tenderness or erythema. External auditory canal Left- normal without erythema or discharge, no excessive cerumen. External auditory canal Right-normal without erythema or discharge, no excessive cerumen. TM left- Ibarra/pearly, normal light reflex and anatomy TM Right- Ibarra/ pearly, normal light reflex and anatomy Hearing Assessment-normal to conversational speech. Nose and sinus- No sinus tenderness along frontal/ maxillary region. External appearance normal and midline. Nares- bilateral quiet airflow, no discharge. Nasal mucosa- No bleeding noted and no ulcerations observed. [place], moist. Turbinates non boggy. Lips- normal color, moist without cracks/lesions Oral Cavity/Palate- hard/soft palate intact without lesions, oral mucosa pink and moist. Dentition assessed and upper/lower dentures. Tongue normal midline. Oropharynx- no pharyngeal erythema, Uvula midline. No post nasal drip. No exudate. Salivary glands- Non tender to palpation CHEST/LUNG: Inspection- symmetric chest wall no pectus deformity. Mildly increased effort, no distress, no use of accessory muscles. Palpation- nontender sternum, ribline. No abnormal pulsations. Auscultation- Breath sounds diminished throughout all lung ross. Decrased and coarse tracheal sounds, bronchial sounds overlying sternum, Bronchovessicular sounds between scapulae posteriorly, and vessicular breath sounds heard throughout periphery. Lungs are not clear today. Adventitious sounds- Prominent scattered expiratory wheezes, rhonchi. Coarse crackling. I:E 1:2 at this time. With nurse christofer present, palpated sternal border. She has prominent breast tissue and auscultated under left breast to lung/heart. CARDIOVASCULAR: Carotid artery- normal, no bruits or abnormal pulsations. Jugular vein- no pulsations. Palpation/Percussion- Normal PMI, no palpable thrill Auscultation- Distant heart sounds. No appreciable murmur. Regular rate and rhythm. Extremities- no digital clubbing, cyanosis, edema, increased warmth. ABDOMEN: Inspection- normal and no visible pulsations. Normal contour. Auscultation- Bowel sounds normal, no abdominal bruits. Palpation/Percussion- soft, non-tender, no rebound tenderness, no rigidity (guarding), no jar tenderness, no masses. Liver-no hepatomegaly, Spleen no splenomegaly, Hernias - none. Rectal not examined. Peripheral Vascular: Upper extremity Left- Normal temperature with pink nailbeds and no ulcerations. Upper extremity Right- Normal temperature with pink nailbeds and no ulcerations. Lower extremity- Normal temperature with pink nailbeds and no ulcerations. DP pulses 2+ bilaterally. Pedal hair intact. Normal capillary refill. Edema- No edema. Musculoskeletal: Generalized-No generalized swelling or edema of extremities, no digital clubbing or cyanosis, neurovascularly intact all four extremities. Upper extremity- Symmetrical posture. No visible deformity. Normal sensation along medial and lateral upper extremity proximally and distally. NO tenderness overlying shoulder, lateral/medial epicondyle. Vending Machine Collector 5/5 and strength 5/5 bilateral UE. Elbow palpated, no tenderness overlying olecranon. Normal supination, pronation to active/passive ROM and to resisted rotation. Bicep insertion/tricep insertion appear normal without obvious pathology. Rotator cuff evaluated and intact. Normal wrist ROM bilaterally. Normal hand movement, intrinsic muscles of hands normal. No tenderness to palpation of hands/wrists/ elbows. Lower extremity- Hip: Not tender to palpation, no pain, no swelling, edema or erythema of surrounding tissue, normal strength and tone. Normal appearing hip ROM bilaterally without pain. Knee: Knee ROM normal. No tenderness overlying trochanters, no tenderness about patella, quad tendon, patellar tendon. No tenderness at tibial tuberosity. Ankle: normal ROM not tender to palpation along medial/lateral malleolus. Foot: Normal movement of toes, no tenderness bilateral feet/toes. Plantar wart base of digit 1 MTP. Spine/Ribs- No deformities, masses or tenderness, no known fractures, normal strength, Normal ROM. Normal stability No tenderness along C/T/L spine. Normal appearing ROM about spine. Neurological: General- Moves all 4 extremities symmetrically. Symmetrical face and body posture. Cranial nerves- individually evaluated II-XII and intact. PERRLA, Normal EOMI, visual/special senses appear intact, Face is symmetrical and normal sensation/movement, normal tongue, normal strength/posture of neck musculature. Reflexes- intact with DTR 2+ patellar, Achilles, bicep, brachial, tricep. Ankle clonus normal with 2 beats. Strength- 5/5 bilateral UE and LE. Soft touch- intact bilateral UE and LE. Temperature sensation- intact bilateral UE and LE. Neuropsych: Oriented- Person, place, time. (AAOx3), Mood/affect- normal and congruent. Able to articulate well. Speech-Normal speech, normal rate, normal tone, normal use of language, volume and coherence. Thought content- normal with ability to perform basic computations and apply abstract thought/reason. Associations- intact, no SI/HI, no hallucinations, delusions, obsessions. Judgment/insight- Appropriate. Memory-Recall intact, remote and recent memory intact. Knowledge- Age appropriate fund of knowledge, concentration and attention span normal. Lymphatic: Head/Neck- normal size and non tender to palpation. Axillary- normal size and non tender to palpation. Femoral and Inguinal- normal size and non tender to palpation. - Lab/Tests/Diagnostic Imaging Lab/Tests/Diagnostic Imaging: Laboratory Last Values WBC 4.44 K/ul (4.6-10.2) L 07/21/18 08:39 RBC 3.95 10^6/ul (4.20-5.40) L 07/21/18 08:39 Hgb 12.3 g/dl (12.0-16.0) 07/21/18 08:39 Hct 37.5 % (37.0-47.0) 07/21/18 08:39 MCV 94.9 fl (81.0-99.0) 07/21/18 08:39 MCH 31.1 pg (27.0-31.0) H 07/21/18 08:39 MCHC 32.8 (31.8-35.4) 07/21/18 08:39 RDW Coeff of Mine 16.0 % (11.6-14.8) H 07/21/18 08:39 Plt Count 160 10^3/uL (140-440) 07/21/18 08:39 Immature Gran % (Auto) 0.7 % (0.0-5.0) 07/21/18 08:39 Neut % (Auto) 75.2 07/21/18 08:39 Lymph % (Auto) 13.5 (10.0-50.0) 07/21/18 08:39 Emmet % (Auto) 8.1 (0-10) 07/21/18 08:39 Eos % (Auto) 1.8 % (0.0-7.0) 07/21/18 08:39 Baso % (Auto) 0.7 % (0.0-3.0) 07/21/18 08:39 Immature Gran # (Auto) 0.0 (0.0-1.0) 07/21/18 08:39 Neut # (Auto) 3.3 K/ul (2.0-6.9) 07/21/18 08:39 Lymph # (Auto) 0.6 K/uL (0.60-3.4) 07/21/18 08:39 Emmet # (Auto) 0.4 K/uL (0.4-2.0) 07/21/18 08:39 Eos # (Auto) 0.1 K/ul (0.0-0.7) 07/21/18 08:39 Baso # (Auto) 0.0 K/uL (0-0.2) 07/21/18 08:39 Puncture Site R rad 07/21/18 08:40 O2 Saturation 89.0 % (95-100) L 07/21/18 08:40 ABG pH 7.401 (7.35-7.45) 07/21/18 08:40 ABG pCO2 34.4 mmHg (35-45) L 07/21/18 08:40 ABG pO2 56.0 mmHg (85-100) L* 07/21/18 08:40 ABG HCO3 21.4 (22.0-26.0) L 07/21/18 08:40 ABG Total CO2 22 (22.0-28.0) 07/21/18 08:40 ABG Base Excess -3 (-2.0-2.0) L 07/21/18 08:40 Aftab Test + 07/21/18 08:40 FiO2 % 21.0 % 07/21/18 08:40 Sodium 134.6 mmol/L (137-145) L 07/21/18 08:39 Potassium 4.15 mmol/L (3.5-5.1) 07/21/18 08:39 Chloride 107.3 mmol/L (98-107) H 07/21/18 08:39 Carbon Dioxide 24.5 mmol/L (22-30) 07/21/18 08:39 Anion Gap 6.95 07/21/18 08:39 BUN 27.3 mg/dL (7-17) H 07/21/18 08:39 Creatinine 1.56 mg/dL (0.60-1.30) H 07/21/18 08:39 Estimated GFR (MDRD) 34.00 mL/min 07/21/18 08:39 BUN/Creatinine Ratio 17.50 07/21/18 08:39 Glucose 87.7 mg/dL (74-106) 07/21/18 08:39 Lactic Acid 0.56 mmol/L (0.7-2.1) L 07/21/18 10:41 Calcium 8.40 mg/dL (8.4-10.2) 07/21/18 08:39 Total Bilirubin 0.46 mg/dL (0.2-1.3) 07/21/18 08:39 AST 25.0 U/L (14-36) 07/21/18 08:39 ALT 15.9 U/L (0-35) 07/21/18 08:39 Alkaline Phosphatase 60.1 U/L (53-141) 07/21/18 08:39 Total Creatine Kinase < 20.0 U/L (30-135) L 07/21/18 08:39 Troponin I 0.019 ng/ml (0.0000-0.120) 07/21/18 08:39 Total Protein 6.49 g/dL (6.3-8.2) 07/21/18 08:39 Albumin 3.42 g/dL (3.5-5.0) L 07/21/18 08:39 Globulin 3.07 07/21/18 08:39 Albumin/Globulin Ratio 1.11 07/21/18 08:39 Procalcitonin 0.12 ng/mL (0.09) 07/21/18 10:41 ABG: Mixed respiratory alkalosis / metabolic acidosis, with normal anion gap CT chest: Airway thickening with patchy nodular ground-glass suggestive of a pneumonia, moderate atherosclerotic disease and post surgical changes of prior sternotomy. Low attenuation material in anterior mediastnium unchanged. COnsistent with fluid. Left adrenal nodule hounsfield units suggestive of adenoma. Granulomatous disease. - Assessment (1) COPD exacerbation Status: Acute Code(s): J44.1 - CHRONIC OBSTRUCTIVE PULMONARY DISEASE W (ACUTE ) EXACERBATION SNOMED Code(s): 467504481 (2) CAP (community acquired pneumonia) Status: Acute Code(s): J18.9 - PNEUMONIA, UNSPECIFIED ORGANISM SNOMED Code(s ): 855464455 (3) BMI 29.0-29.9,adult Status: Acute Code(s): Z68.29 - BODY MASS INDEX (BMI) 29.0-29.9, ADULT SNOMED Code(s): 10612190 (4) Smokes 1 pack of cigarettes per day Status: Acute Code(s): F17.210 - NICOTINE DEPENDENCE, CIGARETTES, UNCOMPLICATED SNOMED Code(s): 77648074 (5) Leukocytopenia Status: Acute Code(s): D72.819 - DECREASED WHITE BLOOD CELL COUNT, UNSPECIFIED SNOMED Code(s): 89410172, 613322131 (6) Hyponatremia Status: Acute Code(s): E87.1 - HYPO-OSMOLALITY AND HYPONATREMIA SNOMED Code( s): 50477207 (7) CKD (chronic kidney disease) Status: Acute Code(s): N18.9 - CHRONIC KIDNEY DISEASE, UNSPECIFIED SNOMED Code(s): 667331120 - Plan Plan: COPD Exacerbation with suspected Pneumonia: The patient has a PORT score of 72 points 0.9-2.8% mortality risk. We discussed close OP f/u but patient did not have reliable transportation and thus we opted for short observational stay. She received 1 G rocephin/zithromax in ER but was then changed to levaquin in ER. I discussed one or the other butnot both. Patient liked 5 days of single agent and thus we will continue the agent. She has some LIVE, dose is reasonable based on CrCl of 43ml/min (no dosage adjustment for levaquin until < 20ml/min). She will get neb tx w/ albuterol q 4 hours and added ipratropium QID (q 6). We will continue to monitor on Tele. She received solumedrol in Er. GOLD guidelines suggest 40mg prednisone equivalent. Recent literature supports moderate steroid. We discussed risks of steroids + FQ. She is aware. I will watch for SE closely. She and I talked about chronic pulm meds. I will likely get spirometry in 1 month, address discharge meds to include LAMA/LABA/ Inhaled GC. Also O2 desat at discharge. - Levaquin 500 IV/PO x 5 days total - O2 titrate >92%. - Nebs as listed. - Prednisone 40mg daily x 5 days (3-7 in literature just as good as 10-14). - Tele LIVE/CKD: Fluids set at NS 100 ml/hour. Baseline appears to be ~1.3-1.5 based on creatinine from 07/11/17 to 07/21/18 with GFR from 33-37. She appears to be in zone for what is normal for her to perhaps mildly worse. Fluid hydrate overnight and check back in am. - Repeat CMP in am - Continue fluids for now 100 ml/hour - Daily weight - Strict I+O Leukocytopenia: Chronic process, following with specialist. Continue to monitor (Not addressed in this hospitalization). 1 pack per day tobacco: Tobacco Cessation discussed today for 2 minutes. We reviewed lifestyle choices and discussed quitting. Ready to quit status discussed. The risks and hazards of continued tobacco abuse were discussed with the patient today and total tobacco cessation as recommended. It was clearly and unambiguously explained that continued tobacco usage will adversely affect overall morbidity and mortality of the patient. Patient was informed that tobacco use can lead to numerous cancers, worsening of cardiovascular and pulmonary systems and that lung damage is often permanent and irreversible. I advised the patient to inform me if any further assistance is requested, as we can offer counseling services, nicotine replacement inhaled, patch, lozenge, gum , or prescription medications to include Chantix or Wellbutrin for assistance. I will reassess the interest in tobacco cessation at the next and all subsequent visits. I will use the 14 mg patches as she smokes quickly upon awakening. R/B/A to therapy d/w patient. - Nicotine patches while in hospital Hyponatremia: Minimal. Checking back to 2012, she has had quite a few readings 132-140. This seems to be chronic process and not new. Monitor. HTN: I will monitor and if she remains >160/90 I will consider adding norvasc 5. ON ARB, on BB> Goal in hospital 140-150 and goal OP <140/90. Overweight: BMI 29-30. Contributes to ability to breath. Weight loss encouraged , encourage df/u with outpatient. Vaccinations: Flu/Pneumonia vaccines as outpatient. 1 week after stopping steroids. DVT pRophy: Lovenox - Lovenox 40 daily Diet: Regular Activity: Ad rubina. Dispo: If she continues to improve, we will consider d/c home in am. She was stable by the time I saw her. I spent 70 minutes with this patient today for this admit to obs status. I checked back on her at 17:00 (initially seen 12:00 ) and she was doing much better. Stable, feeling better but BP was elevated. As noted above, repeat CBC/CMP in am. Recheck status in am. Telemetry overnight.
[2018-07-21] MEDS: COREG PO SCH (17:15)
[2018-07-21] MEDS: LASIX TAB PO SCH (17:15)
[2018-07-21] MEDS: ATROVENT 0.02% NEB NEB SCH ×2 (17:39→23:25)
[2018-07-21] MEDS: ALBUTEROL 0.083% NEB NEB PRN ×2 (17:40→23:25)
[2018-07-21] MEDS ORDERED: LOVENOX SUBCUT SCH (18:30)
[2018-07-21] MEDS ORDERED: NICODERM 14 MG TD SCH (18:30)
[2018-07-21] MEDS: APRESOLINE PO SCH (20:57)
[2018-07-21] MEDS: KLONOPIN PO SCH (20:57)
[2018-07-21] MEDS ORDERED: LIPITOR PO SCH (21:00)
[2018-07-21] MEDS ORDERED: NON-FORMULARY MEDICATION (Hydralazine Hcl [Hydralazine Hcl] 25 MG) PO SCH (21:00)
[2018-07-22] MEDS: ATROVENT 0.02% NEB NEB SCH (05:15)
[2018-07-22] MEDS: ALBUTEROL 0.083% NEB NEB PRN (05:15)
[2018-07-22] MEDS: LASIX TAB PO SCH (05:37)
[2018-07-22] MEDS ORDERED: ASPIRIN EC PO SCH (08:00)
[2018-07-22] MEDS ORDERED: PREDNISONE PO SCH (08:00)
[2018-07-22] MEDS: COREG PO SCH (08:34)
[2018-07-22] MEDS: KLONOPIN PO SCH (08:35)
[2018-07-22] MEDS: APRESOLINE PO SCH (08:35)
[2018-07-22] MEDS ORDERED: PLAVIX PO SCH (09:00)
[2018-07-22] MEDS ORDERED: COZAAR PO SCH (09:00)
[2018-07-22] MEDS ORDERED: LEVAQUIN 500 MG in PREMIX 100 ML D5W 1 BAG IV SCH (09:00)
[2018-07-22] MEDS ORDERED: TRIGLIDE PO SCH (09:00)
[2018-07-22] MEDS ORDERED: ROCEPHIN 1 GM in SODIUM CHLORIDE 50 ML IV SCH (09:00)
[2018-07-22 09:31] VITALS: BP 184/85; TEMP 97.6
--- NOTE | 2018-07-22 12:22 | PCM.DC ---
Final Diagnosis: Acute respiratory failure (Acute)/COPD exacerbation (Acute): Markedly improved, stable, doing well with q4 hour albuterol ipratropium QID CAP (community acquired pneumonia) (Acute): Rocephin/azithromycin in ER, changed to levaquin. I changed it to doxy/cefdinir at discharge . Complete 5 days abx. CKD (chronic kidney disease) (Chronic): Chronic stable process Hyponatremia (Chronic): Monitor, seems chronic Leukocytopenia (Chronic): Pancytopenia at discharge with decreases likely secondary to dilution. Repeat CBC/CMP w/ next OV. Smokes 1 pack of cigarettes per day (Chronic): Cessation encouraged. Pseudohypocalemia: Corrected to normal 8.4. Elevated Blood pressure: Chronic process, resume all home meds. Verapmil appears to have been held from home list. KEep log and bring to me this week for appt. (1) COPD exacerbation Status: Acute Code(s): J44.1 - CHRONIC OBSTRUCTIVE PULMONARY DISEASE W (ACUTE ) EXACERBATION SNOMED Code(s): 940000431 (2) CAP (community acquired pneumonia) Status: Acute Code(s): J18.9 - PNEUMONIA, UNSPECIFIED ORGANISM SNOMED Code(s ): 375794424 (3) BMI 29.0-29.9,adult Status: Chronic Code(s): Z68.29 - BODY MASS INDEX (BMI) 29.0-29.9, ADULT SNOMED Code(s): 96756635 (4) Smokes 1 pack of cigarettes per day Status: Chronic Code(s): F17.210 - NICOTINE DEPENDENCE, CIGARETTES, UNCOMPLICATED SNOMED Code(s): 84194328 (5) Leukocytopenia Status: Chronic Code(s): D72.819 - DECREASED WHITE BLOOD CELL COUNT, UNSPECIFIED SNOMED Code(s): 36822943, 837543279 (6) Hyponatremia Status: Chronic Code(s): E87.1 - HYPO-OSMOLALITY AND HYPONATREMIA SNOMED Code(s): 22197107 (7) CKD (chronic kidney disease) Status: Chronic Code(s): N18.9 - CHRONIC KIDNEY DISEASE, UNSPECIFIED SNOMED Code(s): 828676353 (8) Elevated blood pressure reading Status: Chronic Code(s): R03.0 - ELEVATED BLOOD-PRESSURE READING, W/O DIAGNOSIS OF HTN SNOMED Code(s): 95801026 (9) Low calcium levels Status: Chronic Code(s): E83.51 - HYPOCALCEMIA SNOMED Code(s): 0038933 Reason for Hospitalization: COPD exacerbation/Pneumonia. Failed OP treatment. Prognosis at Discharge: Good. Markedly improved overnight. Condition at Discharge: Stable/improved. Medications at Discharge: Ambulatory Orders Medication Instructions Recorded Clonazepam [Klonopin] 0.5 mg PO BID 04/14/13 Atorvastatin Calcium [Lipitor] 20 mg PO BEDTIME 07/14/15 Olanzapine [Zyprexa] 10 mg PO BEDTIME 07/14/15 Clopidogrel Bisulfate [Plavix] 75 mg PO DAILY 11/16/15 Aspirin [Aspir-Low] 81 mg PO DAILY 11/27/16 Iron 65 mg PO DAILY 11/27/16 Cefdinir 300 mg PO BID 5 Days #10 capsule 07/22/18 Doxycycline Monohydrate 100 mg PO BID 5 Days #10 capsule 07/22/18 Ipratropium [place] 0.02% Neb 1 vial NEB RTQ6H #120 vial.neb 07/22/18 [Atrovent 0.02% Neb] Nicotine 14 mg [Nicoderm 14 mg] 1 patch TD BEDTIME 30 Days #1 b 07/22/18 Prednisone 40 mg PO DAILYWM 3 Days #6 tablet 07/22/18 Lab/Diagnostics: Laboratory Last Values WBC 2.10 K/ul (4.6-10.2) L 07/22/18 04:50 RBC 3.09 10^6/ul (4.20-5.40) L 07/22/18 04:50 Hgb 9.6 g/dl (12.0-16.0) L 07/22/18 04:50 Hct 28.9 % (37.0-47.0) L D 07/22/18 04:50 MCV 93.5 fl (81.0-99.0) 07/22/18 04:50 MCH 31.1 pg (27.0-31.0) H 07/22/18 04:50 MCHC 33.2 (31.8-35.4) 07/22/18 04:50 RDW Coeff of Mine 15.3 % (11.6-14.8) H 07/22/18 04:50 Plt Count 122 10^3/uL (140-440) L 07/22/18 04:50 Immature Gran % (Auto) 0.5 % (0.0-5.0) 07/22/18 04:50 Neut % (Auto) 67.1 07/22/18 04:50 Lymph % (Auto) 21.4 (10.0-50.0) 07/22/18 04:50 [place] % (Auto) 10.5 (0-10) H 07/22/18 04:50 Eos % (Auto) 0.0 % (0.0-7.0) 07/22/18 04:50 Baso % (Auto) 0.5 % (0.0-3.0) 07/22/18 04:50 Immature Gran # (Auto) 0.0 (0.0-1.0) 07/22/18 04:50 Neut # (Auto) 1.4 K/ul (2.0-6.9) L 07/22/18 04:50 Lymph # (Auto) 0.5 K/uL (0.60-3.4) L 07/22/18 04:50 [place] # (Auto) 0.2 K/uL (0.4-2.0) L 07/22/18 04:50 Eos # (Auto) 0.0 K/ul (0.0-0.7) 07/22/18 04:50 Baso # (Auto) 0.0 K/uL (0-0.2) 07/22/18 04:50 Puncture Site R rad 07/21/18 08:40 O2 Saturation 89.0 % (95-100) L 07/21/18 08:40 ABG pH 7.401 (7.35-7.45) 07/21/18 08:40 ABG pCO2 34.4 mmHg (35-45) L 07/21/18 08:40 ABG pO2 56.0 mmHg (85-100) L* 07/21/18 08:40 ABG HCO3 21.4 (22.0-26.0) L 07/21/18 08:40 ABG Total CO2 22 (22.0-28.0) 07/21/18 08:40 ABG Base Excess -3 (-2.0-2.0) L 07/21/18 08:40 [place] Test + 07/21/18 08:40 FiO2 % 21.0 % 07/21/18 08:40 Sodium 130.7 mmol/L (137-145) L 07/22/18 04:50 Potassium 4.52 mmol/L (3.5-5.1) 07/22/18 04:50 Chloride 106.2 mmol/L (98-107) 07/22/18 04:50 Carbon Dioxide 22.6 mmol/L (22-30) 07/22/18 04:50 Anion Gap 6.42 07/22/18 04:50 BUN 32.2 mg/dL (7-17) H 07/22/18 04:50 Creatinine 1.40 mg/dL (0.60-1.30) H 07/22/18 04:50 Estimated GFR (MDRD) 38.00 mL/min 07/22/18 04:50 BUN/Creatinine Ratio 23.00 07/22/18 04:50 Glucose 88.7 mg/dL (74-106) 07/22/18 04:50 Lactic Acid 0.56 mmol/L (0.7-2.1) L 07/21/18 10:41 Calcium 7.43 mg/dL (8.4-10.2) L 07/22/18 04:50 Total Bilirubin 0.31 mg/dL (0.2-1.3) 07/22/18 04:50 AST 24.0 U/L (14-36) 07/22/18 04:50 ALT 13.1 U/L (0-35) 07/22/18 04:50 Alkaline Phosphatase 44.0 U/L (53-141) L 07/22/18 04:50 Total Creatine Kinase < 20.0 U/L (30-135) L 07/21/18 08:39 Troponin I 0.019 ng/ml (0.0000-0.120) 07/21/18 08:39 Total Protein 5.53 g/dL (6.3-8.2) L 07/22/18 04:50 Albumin 2.75 g/dL (3.5-5.0) L 07/22/18 04:50 Globulin 2.78 07/22/18 04:50 Albumin/Globulin Ratio 0.98 07/22/18 04:50 Procalcitonin 0.12 ng/mL (0.09) 07/21/18 10:41 BUN/CR Trends 07/21/18 07/22/18 Range/Units 08:39 04:50 BUN 27.3 H 32.2 H (7-17) mg/dL Creatinine 1.56 H 1.40 H (0.60-1.30) mg/dL Na/K Trends 07/21/18 07/22/18 Range/Units 08:39 04:50 Sodium 134.6 L 130.7 L (137-145) mmol/L Potassium 4.15 4.52 (3.5-5.1) mmol/L H/H Trends 07/21/18 07/22/18 Range/Units 08:39 04:50 Hgb 12.3 9.6 L (12.0-16.0) g/dl Hct 37.5 28.9 L D (37.0-47.0) % WBC Trends 07/21/18 07/22/18 Range/Units 08:39 04:50 WBC 4.44 L 2.10 L (4.6-10.2) K/ul ANC 1400/ul. CT Chest Ground Glass Opacities within the lung consistent with pneumonia. Walk test desat to below 88%. Education Provided to Patient and Family: 1. Albuterol q 4 hours 2. Ipratropium QID mixed with albuterol 3. Tobacco Cessation discussed again today for 2 minutes. We reviewed lifestyle choices and discussed quitting. Ready to quit status discussed. The risks and hazards of continued tobacco abuse were discussed with the patient today and total tobacco cessation as recommended. It was clearly and unambiguously explained that continued tobacco usage will adversely affect overall morbidity and mortality of the patient. Patient was informed that tobacco use can lead to numerous cancers, worsening of cardiovascular and pulmonary systems and that lung damage is often permanent and irreversible. I advised the patient to inform me if any further assistance is requested, as we can offer counseling services, nicotine replacement inhaled, patch, lozenge, gum , or prescription medications to include Chantix or Wellbutrin for assistance. I will reassess the interest in tobacco cessation at the next and all subsequent visits. 4. Weight loss encouraged. 5. Monitor electrolytes 6. F/U with hematology regarding pancytopenia. Follow-ups: 1. Me in office saturday for hospital f/u 2. Make appt at that time for referal back to hematology 3. CBC/CMP in office. Disposition: HOME SELF-CARE Hospital Course: Hospital Course: 62 yo former patient of Dr. Romero, last saw [facility] on . She was treated with keflex for COPD exacerbation by OP and failed this course. Worsening SOA, worsening breathing, worsening symptoms. Presented to ER with worsening and CT consistent with Pneumonia. We discussed outpt therapy w/ close f/u vs inpatient care and she was deemed suitable for obs with her PORT score/CURB 65 score. She is comfortable, no major issues, no obvious respiratory distress. Neb in Er, rocphin/Azithromycin/solumedrol and nebs and Dr. Alvarado called for admit. Admitted to obs status albuterol nebs q 4 hours and ipratropium QID. Stopped solumedrol, changed to prednisone 40mg daily as mid dose is just as good as high dose. Overnight she did well. Great Uout with >1600ml in 8 hours 3 ml/kg/hour. She is drinking a lot of water and is net 1 L up. Sodium dropped 134 to 130, still within her normal zone of sodium over last 2 years. I question SIADH vs polydipsia and she notes that she has been drinking a lot of water lately. Discussed to consider 2L water limit per day. She noted understanding. Calcium was seen to be low but corrected with the degree of hypoalbuminemia to 8.4. The creatinine is chronically elevated but stable for her compared to levels over last 2 years. There are thus abnl findings but they have been known, established and long standing. I looked at sodiums, calciums, potassiums, blood work as well. He White count seems to fluctuate between 2.1 and 4.4. Same decrease was seen down to 2.16 05/16/18 and then it increased. Her hgb has dropped and this looks a little lower than normal at 9.6. The 12.3 that was seen on 07/21/18 appears to be the fluke in the list as most of them are 10-11.8. Plt values also seem to range from 122- 160 over last few months. She was 125 07/14/18. Perhaps a little dehydrated upon admit and now fluid hydrated and labs are back to normal chronic state for the patient. She has neb machine at home, we will continue this option for now. Consider ANORO vs bevespi and QVAR or use GC/LABA and CAROL. Try to get all 3 as she has already showed signs that she is worsening in pulm function. Smoking cessation d/w her. Her home verapamil was held, we will resume this. BP was high during admit but she was not on her home meds. we will resume these and f/u with her this saturday in office with me at 830. She was ready to go home this am and was feeling better. WE talked about the d/c and she will see me saturday. Spirometry in 1 month. Consider pneumonia and flu shot 1 week after last dose of steroid. I will try to see which meds work for her insurance to include LAMA/LABA/GC. Continue f/u with hematology. Chronic problems seem stable, breathing is much better, on appropriate abx, blood cultures negative and comfortable. Desat below 88 while walking, orders for home oxygen provided. Day of D/C Physical exam. Constitutional: Appearance-No acute distress, Consistent with stated age.Sitting in bedside chair Orientation- Oriented x 3, alertGait-Normal pace, normal arm movement. Build and Nutrition-[obese female] General- Patient is pleasant and cooperative with the interview and exam. Head/Neck: Head- normocephalic and atraumatic. Neck- without visible/palpable lumps or pulsations. Palpation- No bony tenderness about head/neck along frontal, occipital, temporal, parietal, mastoid, jawline, zygoma, orbit or any other location. NO temporal artery tenderness. No TMJ tenderness. Neck Supple. Thyroid-No thyromegaly, no nodules Eye: Bilaterally PERRLA, EOMI. No discharge. Upper and lower eyelids are normal. Sclera/conjunctiva normal without discharge. Cornea is normal and clear. Lens is normal. Eyeball appears normal. No ciliary flushing, no conjunctival injection. ENMT: Nasal mucosa- No bleeding noted and no ulcerations observed. [place], moist. Turbinates non boggy. Lips- normal color, moist without cracks/lesions Oral Cavity/Palate- hard/soft palate intact without lesions, oral mucosa pink and moist. Dentition assessed and upper/lower dentures. Tongue normal midline. Oropharynx- no pharyngeal erythema, Uvula midline. No post nasal drip. No exudate. Salivary glands- Non tender to palpation CHEST/LUNG: Inspection- symmetric chest wall no pectus deformity. Mildly increased effort, no distress, no use of accessory muscles. Palpation- nontender sternum, ribline. No abnormal pulsations. Auscultation- Breath sounds diminished throughout all lung ross. Decrased and coarse tracheal sounds, bronchial sounds overlying sternum, Bronchovessicular sounds between scapulae posteriorly, and vessicular breath sounds heard throughout periphery. Lungs are not clear today. Adventitious sounds- Prominent scattered expiratory wheezes, rhonchi. Coarse crackling. I:E 1:2 at this time. With nurse christofer present, palpated sternal border. She has prominent breast tissue and auscultated under left breast to lung/heart. This is better when compared to yesterday but still prominent. She is breathing much more comfortably. CARDIOVASCULAR: Carotid artery- normal, no bruits or abnormal pulsations. Jugular vein- no pulsations. Palpation/Percussion- Normal PMI, no palpable thrill Auscultation- Distant heart sounds. No appreciable murmur. Regular rate and rhythm. Extremities- no digital clubbing, cyanosis, edema, increased warmth. ABDOMEN: Inspection- normal and no visible pulsations. Normal contour. Auscultation- Bowel sounds normal, no abdominal bruits. Palpation/Percussion- soft, non-tender, no rebound tenderness, no rigidity (guarding), no jar tenderness, no masses. Liver-no hepatomegaly, Spleen no splenomegaly, Hernias - none. Rectal not examined. Peripheral Vascular: Upper extremity Left- Normal temperature with pink nailbeds and no ulcerations. Upper extremity Right- Normal temperature with pink nailbeds and no ulcerations. Lower extremity- Normal temperature with pink nailbeds and no ulcerations. DP pulses 2+ bilaterally. Pedal hair intact. Normal capillary refill. Edema- No edema. Neurological: General- Moves all 4 extremities symmetrically. Symmetrical face and body posture. Cranial nerves- individually evaluated II-XII and intact. PERRLA, Normal EOMI, visual/special senses appear intact, Face is symmetrical and normal sensation/movement, normal tongue, normal strength/posture of neck musculature. Reflexes- intact with DTR 2+ patellar, Achilles, bicep, brachial, tricep. Ankle clonus normal with 2 beats. Strength- 5/5 bilateral UE and LE. Soft touch- intact bilateral UE and LE. Temperature sensation- intact bilateral UE and LE. Neuropsych: Oriented- Person, place, time. (AAOx3), Mood/affect- normal and congruent. Able to articulate well. Speech-Normal speech, normal rate, normal tone, normal use of language, volume and coherence. Thought content- normal with ability to perform basic computations and apply abstract thought/reason. Associations- intact, no SI/HI, no hallucinations, delusions, obsessions. Judgment/insight- Appropriate. Memory-Recall intact, remote and recent memory intact. Knowledge- Age appropriate fund of knowledge, concentration and attention span normal. Lymphatic: Head/Neck- normal size and non tender to palpation. Axillary- normal size and non tender to palpation. Femoral and Inguinal- normal size and non tender to palpation. Plan: 1. D/C home today 2. Breathing is much more comfortable 3. Smoking cessation reviewed at length 4. Albuterol q 4 hours 5. ipratopium QID 6. F/U with me saturday 7. Repeat CBC/CMP then. 8. Consider repeat/return to hematology. >30 minutes spent in discharging patient/educating patient and reviewing the above. Time not including documentation.
[2018-07-22] MEDS ORDERED: NICODERM 14 MG TD SCH (21:00)
[2018-07-22] MEDS ORDERED: LOVENOX SUBCUT SCH (21:00)
== END 2018-07-22 10:42 | disposition home or self-care (01) ==
LOC: ED 08:06 → MEDSURG B 10:44
PROVIDERS: ADMIT Family Medicine; ATTEND Family Medicine
DX: J06.9 Acute upper respiratory infection, unspecified (principal); J44.1 Chronic obstructive pulmonary disease with (acute) exacerbation; J18.9 Pneumonia, unspecified organism; E87.1 Hypo-osmolality and hyponatremia; E83.51 Hypocalcemia; E03.0 Congenital hypothyroidism with diffuse goiter; R03.0 Elevated blood-pressure reading, without diagnosis of hypertension; F17.210 Nicotine dependence, cigarettes, uncomplicated; D72.819 Decreased white blood cell count, unspecified; N18.9 Chronic kidney disease, unspecified; Z68.29 Body mass index [BMI] 29.0-29.9, adult
CPT/HCPCS: 36415; 80053; 82550; 82803; 83605; 84145; 84484; 85025; 87040; 93005; 93010; 94640; 94761; 96361; 96365; 96367; 96372; 96375; 99284

== ENCOUNTER 2018-07-28 08:31 | Outpatient (CLI) ==
[2013-04-14 18:39] VITALS: TEMP 98.9
== END 2018-07-28 08:32 | disposition home or self-care (01) ==
LOC: LAB 08:31
PROVIDERS: ATTEND Internal Medicine Hematology & Oncology
DX: D61.818 Other pancytopenia (principal); J44.9 Chronic obstructive pulmonary disease, unspecified; I10 Essential (primary) hypertension; Z09 Encounter for follow-up examination after completed treatment for conditions other than malignant neoplasm; E87.1 Hypo-osmolality and hyponatremia; N18.3 Chronic kidney disease, stage 3 (moderate); D72.819 Decreased white blood cell count, unspecified
CPT/HCPCS: 36415; 80053; 85025

== ENCOUNTER 2018-08-04 12:29 | Outpatient (CLI) ==
[2013-04-14 18:39] VITALS: TEMP 98.9
== END 2018-08-04 12:30 | disposition home or self-care (01) ==
LOC: LAB 12:29
PROVIDERS: ATTEND Internal Medicine Hematology & Oncology
DX: D72.819 Decreased white blood cell count, unspecified (principal); N18.3 Chronic kidney disease, stage 3 (moderate); D63.1 Anemia in chronic kidney disease
CPT/HCPCS: 36415; 80053; 82607; 82746; 85025

== ENCOUNTER 2018-08-11 08:23 | Outpatient (CLI) ==
[2018-08-11] MEDS ORDERED: PROCRIT SUBCUT STA (09:08)
[2018-08-11 12:50] VITALS: BP 131/75; TEMP 98.4
== END 2018-08-11 08:24 | disposition home or self-care (01) ==
LOC: LAB 08:23 → OPMED 08:24
PROVIDERS: ATTEND Internal Medicine Hematology & Oncology
DX: D72.819 Decreased white blood cell count, unspecified (principal)
CPT/HCPCS: 36415; 82728; 83540; 83550; 85025; 96372

== ENCOUNTER 2018-08-22 09:00 | Outpatient (CLI) ==
[2013-04-14 18:39] VITALS: TEMP 98.9
== END 2018-08-22 09:01 | disposition home or self-care (01) ==
LOC: FCC-LAB 09:00
PROVIDERS: ATTEND Family Medicine
DX: N18.3 Chronic kidney disease, stage 3 (moderate) (principal)
CPT/HCPCS: 36415; 80053; 85025

== ENCOUNTER 2018-08-25 08:00 | Outpatient (CLI) ==
[2013-04-14 18:39] VITALS: TEMP 98.9
== END 2018-08-25 08:01 | disposition home or self-care (01) ==
LOC: LAB 08:00
PROVIDERS: ATTEND Internal Medicine Hematology & Oncology
DX: D72.819 Decreased white blood cell count, unspecified (principal)
CPT/HCPCS: 36415; 80053; 80061; 85025

== ENCOUNTER 2018-09-08 08:48 | Outpatient (CLI) ==
[2018-09-08] MEDS: PROCRIT SUBCUT STA (09:48)
[2018-09-08 09:54] VITALS: BP 133/77; TEMP 98.2
== END 2018-09-08 09:52 | disposition home or self-care (01) ==
LOC: LAB 08:48 → OPMED 09:52
PROVIDERS: ATTEND Internal Medicine Hematology & Oncology
DX: D72.819 Decreased white blood cell count, unspecified (principal)
CPT/HCPCS: 36415; 85025; 96372

== ENCOUNTER 2018-10-17 | Outpatient (CLI) | END 2018-10-17 07:53 | disposition home or self-care (01) | CPT/HCPCS: 36415; 80053; 80061; 85025; 96365 ==

== ENCOUNTER 2018-10-27 08:51 | Outpatient (CLI) ==
[2018-10-27 09:54] VITALS: BP 140/79; TEMP 97.7
[2018-10-27] MEDS ORDERED: PROCRIT SUBCUT STA (09:59)
== END 2018-10-27 08:52 | disposition home or self-care (01) ==
LOC: LAB 08:51 → OPMED 08:52
PROVIDERS: ATTEND Internal Medicine Hematology & Oncology
DX: D72.819 Decreased white blood cell count, unspecified (principal)
CPT/HCPCS: 36415; 85025; 96372

== ENCOUNTER 2018-11-10 11:21 | Outpatient (CLI) ==
[2013-04-14 18:39] VITALS: TEMP 98.9
== END 2018-11-10 11:22 | disposition home or self-care (01) ==
LOC: LAB 11:21
PROVIDERS: ATTEND Internal Medicine Hematology & Oncology
DX: D72.819 Decreased white blood cell count, unspecified (principal)
CPT/HCPCS: 36415; 82728; 83540; 83550; 85025

== ENCOUNTER 2018-11-18 08:53 | Outpatient (CLI) ==
[2013-04-14 18:39] VITALS: TEMP 98.9
== END 2018-11-18 08:54 | disposition home or self-care (01) ==
LOC: LAB 08:53
PROVIDERS: ATTEND Internal Medicine Hematology & Oncology
DX: D72.819 Decreased white blood cell count, unspecified (principal)
CPT/HCPCS: 36415; 80053; 82607; 82746

== ENCOUNTER 2018-11-24 11:13 | Outpatient (CLI) ==
[2018-11-24 11:46] VITALS: BP 148/78; TEMP 98.3
[2018-11-24] MEDS: PROCRIT SUBCUT STA (12:03)
== END 2018-11-24 11:14 | disposition home or self-care (01) ==
LOC: LAB 11:13 → OPMED 11:14
PROVIDERS: ATTEND Internal Medicine Hematology & Oncology
DX: D72.819 Decreased white blood cell count, unspecified (principal)
CPT/HCPCS: 36415; 85025; 96372

== ENCOUNTER 2018-12-03 07:42 | Outpatient (CLI) ==
[2013-04-14 18:39] VITALS: TEMP 98.9
--- NOTE | 2018-12-03 08:37 | US ---
EXAM: Left breast ultrasound. History: Follow-up left breast mass. Comparison: Left breast ultrasound 05/30/2018 Technique: Multiple sonographic images through the left breast were obtained. Color duplex Doppler was used to interrogate vascular flow. Findings: Within the left breast at 10 o'clock 10 cm from nipple just beneath the skin, there is a 0 .3 cm complicated cystic mass which has decreased in size compared to the prior study. No suspicious masses. Impression: Benign complicated cyst within the left breast. Recommend return to routine screening m ammography schedule. BIRADS 2. Benign
== END 2018-12-03 07:43 | disposition home or self-care (01) ==
LOC: RAD 07:42
PROVIDERS: ATTEND Family Medicine
DX: R92.8 Other abnormal and inconclusive findings on diagnostic imaging of breast (principal)

== ENCOUNTER 2018-12-08 08:22 | Outpatient (CLI) ==
[2013-04-14 18:39] VITALS: TEMP 98.9
== END 2018-12-08 08:23 | disposition home or self-care (01) ==
LOC: LAB 08:22
PROVIDERS: ATTEND Internal Medicine Hematology & Oncology
DX: D72.819 Decreased white blood cell count, unspecified (principal)
CPT/HCPCS: 36415; 85025

== ENCOUNTER 2018-12-17 09:08 | Outpatient (CLI) ==
[2013-04-14 18:39] VITALS: TEMP 98.9
--- NOTE | 2018-12-17 09:31 | DI ---
Exam: Three views of the right shoulder. Comparison: Right shoulder MRI performed 12/11/2012. Reason for exam: Pain. FINDINGS: No acute fracture or dislocation. The joint spaces appear well maintained. No unexplaine d calcific soft tissue density or radiopaque retained foreign body. Impression: No acute fracture or malalignment is seen in the right shoulder.
--- NOTE | 2018-12-17 09:32 | DI ---
Exam: Three views of the left shoulder. Comparison: None available. Reason for exam: Pain. FINDINGS: No acute fracture or malalignment. The joint spaces appear well maintained. No unexplain ed calcific soft tissue density or radiopaque retained foreign body. Impression: No acute fracture or malalignment in the left shoulder.
== END 2018-12-17 09:09 | disposition home or self-care (01) ==
LOC: RAD 09:08
PROVIDERS: ATTEND Pain Medicine Interventional Pain Medicine
DX: M25.511 Pain in right shoulder (principal); M25.512 Pain in left shoulder

== ENCOUNTER 2018-12-29 08:33 | Outpatient (CLI) ==
[2013-04-14 18:39] VITALS: TEMP 98.9
== END 2018-12-29 08:34 | disposition home or self-care (01) ==
LOC: LAB 08:33 → OPMED 08:34
PROVIDERS: ATTEND Internal Medicine Hematology & Oncology
DX: D72.819 Decreased white blood cell count, unspecified (principal)
CPT/HCPCS: 36415; 85025

== ENCOUNTER 2019-01-12 09:03 | Outpatient (CLI) ==
[2013-04-14 18:39] VITALS: TEMP 98.9
== END 2019-01-12 09:04 | disposition home or self-care (01) ==
LOC: LAB 09:03
PROVIDERS: ATTEND Internal Medicine Hematology & Oncology
DX: D72.819 Decreased white blood cell count, unspecified (principal)
CPT/HCPCS: 36415; 80053; 82607; 82746; 85025

== ENCOUNTER 2019-01-26 08:36 | Outpatient (CLI) ==
[2013-04-14 18:39] VITALS: TEMP 98.9
== END 2019-01-26 08:37 | disposition home or self-care (01) ==
LOC: LAB 08:36
PROVIDERS: ATTEND Internal Medicine Hematology & Oncology
DX: D72.819 Decreased white blood cell count, unspecified (principal)
CPT/HCPCS: 36415; 85025

== ENCOUNTER 2019-02-09 11:30 | Outpatient (CLI) ==
[2019-02-09 11:57] VITALS: BP 143/76; TEMP 97.4
[2019-02-09] MEDS: PROCRIT SUBCUT STA (12:17)
== END 2019-02-09 11:31 | disposition home or self-care (01) ==
LOC: LAB 11:30 → OPMED 11:31
PROVIDERS: ATTEND Internal Medicine Hematology & Oncology
DX: D72.819 Decreased white blood cell count, unspecified (principal)
CPT/HCPCS: 36415; 85025; 96372

== ENCOUNTER 2019-03-02 08:22 | Outpatient (CLI) ==
[2013-04-14 18:39] VITALS: TEMP 98.9
== END 2019-03-02 08:23 | disposition home or self-care (01) ==
LOC: LAB 08:22
PROVIDERS: ATTEND Internal Medicine Hematology & Oncology
DX: N18.3 Chronic kidney disease, stage 3 (moderate) (principal); D63.1 Anemia in chronic kidney disease; D72.819 Decreased white blood cell count, unspecified
CPT/HCPCS: 36415; 85025

== ENCOUNTER 2019-03-18 08:16 | Outpatient (CLI) ==
[2013-04-14 18:39] VITALS: TEMP 98.9
--- NOTE | 2019-03-18 12:32 | MAMMO ---
EXAM: Digital screening mammogram HISTORY: Screening COMPARISON: 03/07/2018 FINDINGS: Digital MLO and CC views of the right and left breast were performed. Tomosynthesis was p erformed. Computer aided detection utilized. The breast tissue is heterogeneously dense, which coul d obscure small masses. Benign bilateral calcifications. There is no evidence for mass, asymmetry, distortion, or suspicious calcifications in either breast. IMPRESSION: 1. No evidence of malignancy in the right or left breast. 2. Annual screening mammogram is recommended in one year. BIRADS category 2, benign
== END 2019-03-18 08:17 | disposition home or self-care (01) ==
LOC: RAD 08:16
PROVIDERS: ATTEND Nurse Practitioner Family
DX: Z12.31 Encounter for screening mammogram for malignant neoplasm of breast (principal); D72.819 Decreased white blood cell count, unspecified; N18.3 Chronic kidney disease, stage 3 (moderate); D63.1 Anemia in chronic kidney disease
CPT/HCPCS: 36415; 85025

== ENCOUNTER 2019-03-25 08:38 | Outpatient (CLI) ==
[2013-04-14 18:39] VITALS: TEMP 98.9
== END 2019-03-25 08:39 | disposition home or self-care (01) ==
LOC: LAB 08:38
PROVIDERS: ATTEND Nurse Practitioner Family
DX: E53.8 Deficiency of other specified B group vitamins (principal)
CPT/HCPCS: 36415; 82607

== ENCOUNTER 2019-04-01 08:30 | Outpatient (CLI) ==
[2019-04-01 09:23] VITALS: BP 139/75; TEMP 97.1
[2019-04-01] MEDS ORDERED: PROCRIT SUBCUT STA (09:24)
== END 2019-04-01 08:31 | disposition home or self-care (01) ==
LOC: LAB 08:30 → OUTPT 08:31
PROVIDERS: ATTEND Internal Medicine Hematology & Oncology
DX: D72.819 Decreased white blood cell count, unspecified (principal); D64.9 Anemia, unspecified; N18.3 Chronic kidney disease, stage 3 (moderate)
CPT/HCPCS: 36415; 85025; 96372

== ENCOUNTER 2019-04-15 08:18 | Outpatient (CLI) ==
[2013-04-14 18:39] VITALS: TEMP 98.9
== END 2019-04-15 08:19 | disposition home or self-care (01) ==
LOC: LAB 08:18
PROVIDERS: ATTEND Internal Medicine Hematology & Oncology
DX: N18.3 Chronic kidney disease, stage 3 (moderate) (principal); D63.1 Anemia in chronic kidney disease; D72.819 Decreased white blood cell count, unspecified
CPT/HCPCS: 36415; 85025

== ENCOUNTER 2019-06-17 08:18 | Outpatient (CLI) ==
[2013-04-14 18:39] VITALS: TEMP 98.9
== END 2019-06-17 08:19 | disposition home or self-care (01) ==
LOC: LAB 08:18
PROVIDERS: ATTEND Internal Medicine Hematology & Oncology
DX: N18.3 Chronic kidney disease, stage 3 (moderate) (principal); D63.1 Anemia in chronic kidney disease; D72.819 Decreased white blood cell count, unspecified
CPT/HCPCS: 36415; 85025